=== PATIENT | female | born 1940 | race Caucasian/White ===

== ENCOUNTER 2016-12-26 16:31 | Inpatient (IN) | payer OTHER ==
[2016-12-26] MEDS ORDERED: LEVOFLOXACIN 750 MG IVPB 150 ML IVPB ONE ×2 (17:00→17:30)
[2016-12-26] MEDS ORDERED: CLINDAMYCIN IVPB ONE (17:01)
[2016-12-26] MEDS ORDERED: WATER IVPB ONE (17:01)
[2016-12-26] MEDS ORDERED: DEXTROSE 5% IVPB ONE (17:01)
[2016-12-26] MEDS ORDERED: morphine CARPU-JECT 2 MG/1 ML DISP.SYRIN IVPUSH ONE (17:16)
--- NOTE | 2016-12-26 17:22 | PDOC ---
History of Present Illness <Ivonne Farrell - Last Filed: 12/27/16 02:03> - General History Source: Patient Exam Limitations: No Limitations - History of Present Illness Initial Comments: 12/26/16 17:15 76-year-old female presents to the ED for follow-up wound check. Patient states was seen here yesterday after being bit by her neighbor's domesticated cat. Patient states received tetanus, IV antibiotics dressing care, and recommendations return to the ED. Patient denies fever chills but states increased swelling and discomfort to the site. Patient denies history of immunosuppression including diabetes. Patient states is able to move the digits but with difficulty secondary to pain. Timing/Duration: getting worse Severity: moderate Associated Symptoms: reports: denies symptoms <Jennifer Buckner - Last Filed: 12/29/16 08:07> - General Chief Complaint: Revisit,Wound Recheck Stated Complaint: REVISIT, WOUND CHECK Time Seen by Provider: 12/26/16 16:50 Past History <Ivonne Farrell - Last Filed: 12/27/16 02:03> - Travel Traveled outside of the country in the last 30 days: No Close contact w/someone who was outside of country & ill: No - Past Medical History Anemia: No Asthma: Yes (NO RECENT ATTACK) Cancer: No Cardiac Disorders: No (ALCOHOLIC CARDIOMYOPATHY) CVA: No COPD: Yes (Emphysema) CHF: No Dementia: No Diabetes: No GI Disorders: Yes (GERD, Colon polyps;DIVERTICULOSIS;GERD;H/H) Disorders: No HTN: Yes Hypercholesterolemia: Yes Liver Disease: No Seizures: No Thyroid Disease: Yes (Hypothyroidism) - Surgical History Abdominal Surgery: No Appendectomy: No Cardiac Surgery: No Cholecystectomy: No Lung Surgery: No Neurologic Surgery: Yes (LUMBAR LAMINECTOMY W/ STEROID INJECTIONS) Orthopedic Surgery: Yes (R knee arthroscopy, Torn rotated cuff X2) - Immunization History Immunization Up to Date: Yes - Psycho/Social/Smoking Cessation Hx Anxiety: No Suicidal Ideation: No Smoking Status: Yes Smoking History: Former smoker Have you smoked in the past 12 months: No Number of Cigarettes Smoked Daily: 0 If you are a former smoker, when did you quit?: 2000 Information on smoking cessation initiated: No Hx Alcohol Use: No Drug/Substance Use Hx: No Substance Use Type: Alcohol Hx Substance Use Treatment: No Patient Lives Alone: Yes Lives with/in: lives alone <Jennifer Buckner - Last Filed: 12/29/16 08:07> - Past Medical History Allergies/Adverse Reactions: Allergies Allergy/AdvReac Type Severity Reaction Status Date / Time Penicillins Allergy shock Verified 12/26/16 16:34 Home Medications: Ambulatory Orders Calcium Carbonate/Vitamin D3 [Calcium 600-Vit D3 200 Tablet] 1 each PO DAILY 07/07 Magnesium Oxide [Magnesium] 500 mg PO DAILY 02/05/12 Montelukast Na [Singulair -] 10 mg PO HS 02/05/12 Ibandronate Sodium [Boniva (Monthly)] 150 mg PO Q30D 12/14/13 Levothyroxine Sodium 0.88 mcg PO DAILY 12/14/13 Potassium 550 mg PO DAILY 04/18/15 Ranitidine [Zantac -] 150 mg PO BID 04/18/15 Amlodipine Besylate [Norvasc -] 2.5 mg PO DAILY tablet 03/08/16 Atorvastatin Ca [Lipitor] 20 mg PO HS tablet 03/08/16 Buspirone HCl [Buspar -] 10 mg PO BID tablet 03/08/16 Calcium 500Mg/Vit-D 200 Units [Os-Carlos 500+D -] 1 tab PO DAILY tab 03/08/16 Citalopram Hydrobromide [Celexa -] 40 mg PO DAILY tablet 03/08/16 Meclizine HCl [Antivert -] 12.5 mg PO TID PRN #30 tablet 03/08/16 Gabapentin [Neurontin -] 600 mg PO BID 05/04/16 Hydromorphone HCl [Dilaudid] 2 mg PO PRN PRN 05/04/16 Levalbuterol Tartrate [Xopenex Hfa] 15 gm IH PRN PRN 05/04/16 Ciprofloxacin [Cipro -] 500 mg PO Q12H #20 tablet 12/25/16 Clindamycin [Cleocin -] 300 mg PO Q6HPO #28 capsule 12/25/16 Hydrocodone/Ibuprofen [VICOPROFEN 7.5/200 mg [NF MEDICATION]] 1 tab PO Q6H #15 tablet MDD 4mg 12/25/16 Review of Systems - Review of Systems Able to Perform ROS?: Yes Constitutional: No: Symptoms Reported HEENTM: No: Symptoms Reported Respiratory: No: Symptoms reported Cardiac (ROS): No: Symptoms Reported ABD/GI: No: Symptoms Reported : No: Symptoms Reported Musculoskeletal: Yes: Muscle Pain Integumentary: Yes: Erythema, Other (edema) Neurological: No: Headache, Weakness, Dizziness Endocrine: No: Symptoms Reported Hematologic/Lymphatic: No: Symptoms Reported <SitaJennifer ornelas - Last Filed: 12/29/16 08:07> *Physical Exam - Vital Signs Last Vital Signs Temp Pulse Resp BP Pulse Ox 97.7 F 74 18 100/69 94 L 12/26/16 21:00 12/26/16 21:00 12/26/16 21:00 12/26/16 21:00 12/26/16 21:00 <Ivonne Farrell - Last Filed: 12/27/16 02:03> - Vital Signs Last Vital Signs Temp Pulse Resp BP Pulse Ox 98.2 F 81 18 102/64 96 12/26/16 16:34 12/26/16 16:34 12/26/16 16:34 12/26/16 16:34 12/26/16 16:34 - Physical Exam General Appearance: Yes: Nourished, Appropriately Dressed. No: Apparent Distress HEENT: positive: EOMI, TWIN. negative: Pale Conjunctivae Gastrointestinal/Abdominal: positive: Soft. negative: Tenderness Extremity: positive: Normal Capillary Refill, Normal Range of Motion. negative : Normal Inspection (notededema to the right first second and third digit extending to the dorsal aspect and base of right hand with noted opened weeping purulent drainage wound. No foul odor. No palpable Fluctuance or increased warmth) Integumentary: positive: Warm, Swelling Neurologic: positive: Motor Strength 5/5 (ambulatory) <SitaClaymont - Last Filed: 12/29/16 08:07> Heart Score/ECG Review #1 ECG reviewed & interpreted by me at: 02:03 12/27/16 02:03 Twelve-lead EKG was performed and reviewed by me. There is normal sinus rhythm with a normal rate of 68 bpm. The axis is normal. The intervals are normal - pr: 158ms, QRS:82ms, QTc:452ms. There are no ST elevations or depression. T wave inversions v2, v3, v4-v6 flattening <Ivonne Farrell - Last Filed: 12/27/16 02:03> ED Treatment Course - LABORATORY CBC & Chemistry Diagram: 12/26/16 17:36 12/26/16 17:36 - Medications Given in the ED: ED Medications Discontinued Medications Generic Name Dose Route Start Last Admin Trade Name Rosie PRN Reason Stop Dose Admin Clindamycin Phosphate 450 mg/ 51 mls @ 100 mls/hr 12/26/16 17:01 12/26/16 18:16 Dextrose IVPB 12/26/16 17:31 100 mls/hr ONCE ONE Administration Levofloxacin 150 mls @ 100 mls/hr 12/26/16 17:00 12/26/16 17:51 Levaquin 750 Mg Premixed Ivpb - IVPB 12/26/16 18:29 100 mls/hr ONCE ONE Administration Morphine Sulfate 2 mg 12/26/16 17:16 12/26/16 17:51 Morphine Injection - IVPUSH 12/26/16 17:17 2 mg ONCE ONE Administration <Ivonne Farrell - Last Filed: 12/27/16 02:03> - LABORATORY CBC & Chemistry Diagram: 12/29/16 06:20 12/27/16 06:00 <Jennifer Buckner - Last Filed: 12/29/16 08:07> Medical Decision Making - Medical Decision Making 12/26/16 17:19 Patient here for wound check after being bit by domesticated cat yesterday. Patient on exam had subjective complaints of increased pain and swelling. Patient on my exam hand is edematous, tender, and with weeping open wound. Patient will be admitted for localized cellulitis secondary to domesticated cat bite. I will also increase her dose of antibiotics, which were clindamycin and Levaquin. Wound culture and blood cultures also obtained. Case discussed with Dr. Colton Majano and accepted to [facility] inpatient. <Jennifer Buckner - Last Filed: 12/29/16 08:07> *DC/Admit/Observation/Transfer <Ivonne Farrell - Last Filed: 12/27/16 02:03> - Discharge Dispostion Admit: Yes <Jennifer Buckner - Last Filed: 12/29/16 08:07> Diagnosis at time of Disposition: Cellulitis of right hand Cat bite Qualifiers: Encounter type: initial encounter Qualified Code(s): W55.01XA - Bitten by cat, initial encounter
[2016-12-26] MEDS ORDERED: morphine CARPU-JECT 2 MG/1 ML DISP.SYRIN ONE (17:29)
[2016-12-26] MEDS ORDERED: PATIENT'S OWN MEDICATION (NON-FORMULARY) (Levalbuterol Tartrate [Xopenex Hfa] 15 GM) IH PRN (17:42)
[2016-12-26 17:48] LABS: BASOPHIL 0.6 % (0-2.0); EOSINOPHIL 1.3 % (0-4.5); MCHC 32.3 g/dl (32.0-36.0); MEAN CELL VOLUME 89.7 fl (80-96); NEUTROPHILS 69.3 % (42.8-82.8); PLATELET COUNT 190 K/MM3 (134-434); RDW 14.7 % (11.6-15.6); WHITE BLOOD COUNT 11.7 K/mm3 (4.0-10.0)
[2016-12-26 18:32] LABS: ALBUMIN 4.1 g/dl (3.4-5.0); ALK PHOS 67 U/L (45-117); ANION GAP 9 (8-16); CALCIUM 8.9 mg/dL (8.5-10.1); CO2 26 mmol/L (21-32); CREATININE 0.9 mg/dL (0.55-1.02); GLUCOSE,RANDOM 94 mg/dL (74-106); SGOT/AST 25 U/L (15-37); SGPT/ALT 34 U/L (12-78); TOT PROT 7.1 g/dl (6.4-8.2)
[2016-12-26] MEDS ORDERED: CLINDAMYCIN IVPB 300 MG in DEXTROSE 5%-WATER - 48 ML IVPB SCH (21:00)
[2016-12-26] MEDS: ATORVASTATIN CA 20 MG TABLET (FP) PO SCH (21:58)
[2016-12-26] MEDS: GABAPENTIN 300 MG CAPSULE (FP) PO SCH (21:58)
[2016-12-26] MEDS: MONTELUKAST NA 10 MG TABLET PO SCH (21:59)
[2016-12-26] MEDS: RANITIDINE HCL 150 MG TABLET (FP) PO SCH (21:59)
[2016-12-26] MEDS: busPIRone HCL 10 MG TABLET (FP) PO SCH (22:27)
[2016-12-26 22:37] VITALS: BMI 29.2
[2016-12-26] MEDS: morphine CARPU-JECT 2 MG/1 ML DISP.SYRIN IVPUSH PRN (22:57)
[2016-12-27] MEDS: CLINDAMYCIN 300 MG PREMIX IVPB 50 ML IVPB SCH ×3 (00:54→09:04)
--- NOTE | 2016-12-27 01:58 | PDOC ---
*Physical Exam - Vital Signs Last Vital Signs Temp Pulse Resp BP Pulse Ox 97.7 F 74 18 100/69 94 L 12/26/16 21:00 12/26/16 21:00 12/26/16 21:00 12/26/16 21:00 12/26/16 21:00 ED Treatment Course - LABORATORY CBC & Chemistry Diagram: 12/26/16 17:36 12/26/16 17:36 - Medications Given in the ED: ED Medications Discontinued Medications Generic Name Dose Route Start Last Admin Trade Name Rosie PRN Reason Stop Dose Admin Clindamycin Phosphate 450 mg/ 51 mls @ 100 mls/hr 12/26/16 17:01 12/26/16 18:16 Dextrose IVPB 12/26/16 17:31 100 mls/hr ONCE ONE Administration Levofloxacin 150 mls @ 100 mls/hr 12/26/16 17:00 12/26/16 17:51 Levaquin 750 Mg Premixed Ivpb - IVPB 12/26/16 18:29 100 mls/hr ONCE ONE Administration Morphine Sulfate 2 mg 12/26/16 17:16 12/26/16 17:51 Morphine Injection - IVPUSH 12/26/16 17:17 2 mg ONCE ONE Administration Medical Decision Making - Medical Decision Making 12/27/16 01:57 This patient returned to the ER a she promised she would Hand swollen, weeping Will admit Will give IV abx Pt agreeable to this Pt seen by Midlevel Provider under my direct supervision Pt interviewed and examined Ancillary studies reviewed I agree with plan as outlined by Midlevel Provider *DC/Admit/Observation/Transfer Diagnosis at time of Disposition: Cellulitis of right hand Cat bite Qualifiers: Encounter type: initial encounter Qualified Code(s): W55.01XA - Bitten by cat, initial encounter
[2016-12-27] MEDS: morphine CARPU-JECT 2 MG/1 ML DISP.SYRIN IVPUSH PRN (06:23)
[2016-12-27 07:52] LABS: MCH 29.9 pg (25.7-33.7); MCHC 33.7 g/dl (32.0-36.0); MEAN CELL VOLUME 88.7 fl (80-96); MEAN PLT VOLUME 7.7 fl (7.5-11.1); PLATELET COUNT 170 K/MM3 (134-434); RDW 14.2 % (11.6-15.6); WHITE BLOOD COUNT 8.4 K/mm3 (4.0-10.0)
[2016-12-27 08:46] LABS: ALBUMIN 3.4 g/dl (3.4-5.0); ALK PHOS 59 U/L (45-117); ANION GAP 9 (8-16); BILIRUBIN,TOTAL 0.9 mg/dL (0.2-1.0); CALCIUM 8.3 mg/dL (8.5-10.1); CO2 26 mmol/L (21-32); CREATININE 0.7 mg/dL (0.55-1.02); GLUCOSE,RANDOM 87 mg/dL (74-106); SGOT/AST 20 U/L (15-37); SGPT/ALT 27 U/L (12-78)
[2016-12-27] MEDS: LEVOTHYROXINE NA 88 MCG TABLET (FP) PO SCH (09:04)
[2016-12-27] MEDS: RANITIDINE HCL 150 MG TABLET (FP) PO SCH ×2 (09:04→22:38)
[2016-12-27] MEDS: amLODIPine BESYLATE 5 MG TABLET (FP) PO SCH (09:04)
[2016-12-27] MEDS: GABAPENTIN 300 MG CAPSULE (FP) PO SCH ×2 (09:04→22:38)
[2016-12-27] MEDS: busPIRone HCL 10 MG TABLET (FP) PO SCH ×2 (09:07→22:38)
[2016-12-27] MEDS: CITALOPRAM HYDROBROMIDE 20 MG TABLET (FP) PO SCH (09:09)
--- NOTE | 2016-12-27 11:11 | PN ---
Progress Note (short form) - Note Progress Note: ID consult imp/reccd 76 year old s/p cat bite by neighbors cat (UTD on vaccines), seen in ED 12/25- advised admission- she declined and went home on po cipro and po clindamycin patient with penicillin allergy (hives, swelling, sob) hand got more red and painful and she came back to ed for evaluation infected cat bite pen allergy would suggest hand surgery evaluation continue levaqun and clindamycin f/u cultures Problem List - Problems (1) Infected cat bite Code(s): W55.01XA - BITTEN BY CAT, INITIAL ENCOUNTER (2) Penicillin allergy Code(s): Z88.0 - ALLERGY STATUS TO PENICILLIN
--- NOTE | 2016-12-27 11:33 | HP ---
Admitting History and Physical - Primary Care Physician PCP: Colton Majano - Admission Chief Complaint: s/p R hand cat bite History of Present Illness: 12/26/16 17:15 76-year-old female h/o HTN, HLP, OA/DJD, anxiety/depression, hypothyroidism, presents to the ED for after being bit on the right hand by her neighbor's domesticated cat. Patient was bit and came in ER on 12/25 but then she left AMA to arrange the care for her own 3 cats that she has at home. On 12.26 she developed worsening R hand pain and swelling and came back to ER; she received tetanus, IV antibiotics dressing care, and wasadmitted as INPT. Patient denies fever chills but states increased swelling and discomfort to the site. Patient states is able to move the digits but with difficulty secondary to pain. History Source: Patient, Medical Record Limitations to Obtaining History: No Limitations - Past Medical History Cardiovascular: Yes: HTN Pulmonary: Yes: COPD ...: No Musculoskeletal: Yes: Chronic low back pain, Osteoarthritis - Advance Directives Advance Directives: Yes: Health Care Proxy - Smoking History Smoking history: Former smoker Have you smoked in the past 12 months: No Aproximately how many cigarettes per day: 0 If you are a former smoker, when did you quit?: 2000 - Alcohol/Substance Use Hx Alcohol Use: No History of Substance Use: reports: None - Social History Usual Living Arrangement: Yes: Alone ADL: Independent History of Recent Travel: No Home Medications - Allergies Allergies/Adverse Reactions: Allergies Allergy/AdvReac Type Severity Reaction Status Date / Time Penicillins Allergy shock Verified 12/26/16 16:34 - Home Medications Home Medications: Ambulatory Orders Calcium Carbonate/Vitamin D3 [Calcium 600-Vit D3 200 Tablet] 1 each PO DAILY 07/07 Magnesium Oxide [Magnesium] 500 mg PO DAILY 02/05/12 Montelukast Na [Singulair -] 10 mg PO HS 02/05/12 Ibandronate Sodium [Boniva (Monthly)] 150 mg PO Q30D 12/14/13 Levothyroxine Sodium 0.88 mcg PO DAILY 12/14/13 Potassium 550 mg PO DAILY 04/18/15 Ranitidine [Zantac -] 150 mg PO BID 04/18/15 Amlodipine Besylate [Norvasc -] 2.5 mg PO DAILY tablet 03/08/16 Atorvastatin Ca [Lipitor] 20 mg PO HS tablet 03/08/16 Buspirone HCl [Buspar -] 10 mg PO BID tablet 03/08/16 Calcium 500Mg/Vit-D 200 Units [Os-Carlos 500+D -] 1 tab PO DAILY tab 03/08/16 Citalopram Hydrobromide [Celexa -] 40 mg PO DAILY tablet 03/08/16 Meclizine HCl [Antivert -] 12.5 mg PO TID PRN #30 tablet 03/08/16 Gabapentin [Neurontin -] 600 mg PO BID 05/04/16 Hydromorphone HCl [Dilaudid] 2 mg PO PRN PRN 05/04/16 Levalbuterol Tartrate [Xopenex Hfa] 15 gm IH PRN PRN 05/04/16 Ciprofloxacin [Cipro -] 500 mg PO Q12H #20 tablet 12/25/16 Clindamycin [Cleocin -] 300 mg PO Q6HPO #28 capsule 12/25/16 Hydrocodone/Ibuprofen [VICOPROFEN 7.5/200 mg [NF MEDICATION]] 1 tab PO Q6H #15 tablet MDD 4mg 12/25/16 Family Disease History - Family Disease History Family History: Unremarkable Review of Systems - Review of Systems Constitutional: denies: Chills, Fever, Lethargy Eyes: denies: Blind Spots, Blurred Vision, Double Vision HENT: denies: Epistaxis Neck: denies: Pain on Movement, Stiffness Cardiovascular: denies: Palpitations, Shortness of Breath Respiratory: denies: Cough, SOB Gastrointestinal: denies: Abdominal Pain, Constipation, Diarrhea, Vomiting Genitourinary: denies: Dysuria, Flank Pain Musculoskeletal: reports: Other (R hand pain, rash and swelling after cat bite) . denies: Back Pain Integumentary: reports: Wound (R hand). denies: Eczema Neurological: denies: Change in LOC, Change in Speech, Confusion, Dizziness, Headache, Seizure, Syncope, Unsteady Gait, Weakness Endocrine: denies: Excessive Sweating, Flushing Hematology/Lymphatic: denies: Easily Bruised, Excessive Bleeding Psychiatric: denies: Altered Sleep Pattern, Anxiety, Depression, Suicidal Physical Examination Vital Signs: Vital Signs Temperature 98.8 F 12/27/16 10:00 Pulse Rate 87 12/27/16 10:00 Respiratory Rate 18 12/27/16 10:00 Blood Pressure 116/75 12/27/16 10:00 O2 Sat by Pulse Oximetry (%) 95 12/27/16 09:00 Constitutional: Yes: No Distress, Calm Eyes: Yes: Conjunctiva Clear HENT: Yes: Atraumatic Neck: Yes: Supple Cardiovascular: Yes: Regular Rate and Rhythm Respiratory: Yes: CTA Bilaterally Gastrointestinal: Yes: Soft. No: Distention, Tenderness Renal/: No: CVA Tenderness - Left, CVA Tenderness - Right Musculoskeletal: No: Joint Stiffness, Joint Swelling Extremities: Yes: Other (R hand wounds around distal radial area s/p multiple bites, dorsal hand swelling and rash; pain with minimal movements.). No: Cold, Cool, Cyanosis Edema: No Integumentary: Yes: Rash (see above). No: Pressure Ulcer, Venous Stasis Changes Neurological: Yes: WNL, Alert, Oriented ...Motor Strength: WNL Psychiatric: Yes: WNL, Alert, Oriented. No: Agitated, Suicidal Ideation Labs: CBC, BMP 12/27/16 06:00 12/27/16 06:00 Imaging - Results Chest X-ray: Report Reviewed Other: Report Reviewed Assessment/Plan 12/26/16 17:15 76-year-old female h/o HTN, HLP, OA/DJD, anxiety/depression, hypothyroidism, presents to the ED for after being bit on the right hand by her neighbor's domesticated cat. R hand cellulitis admit to inpt; IV antibiotics per ID -d/w dr Edwards wound care per hand sx - d/w dr Sonido [place], DVT pfx d/w pt and staff
[2016-12-27] MEDS: LEVOFLOXACIN 500 MG IVPB 100 ML IVPB SCH (13:53)
[2016-12-27] MEDS: LACTOBACILLUS ACIDOPHILUS 1 EACH TAB (FP) PO SCH (13:53)
--- NOTE | 2016-12-27 14:08 | CONS ---
DATE OF CONSULTATION: DATE OF DICTATION: 12/27/2016 REQUESTED BY: Colton Majano MD This is a 76-year-old woman. She is . She lives alone. She presented to the emergency room on the when she sustained a bite to her hand from her neighbor's cat. Apparently the cat was on her terrace--they share a terrace, and she thought it was her cat, and then she threw a blanket on it, and the cat became combative and it bit her. The patient came to the emergency room. She was found to have multiple puncture wounds to her right wrist, a deeper one near the radial aspect of the wrist. They irrigated the wound and Betadine soaked it. She was given clindamycin and Levaquin. It was recommended to her that she stay but she declined admission. She received, as well, a TDaP vaccination and she insistent on going home to take care of her 3 cats. After going home, she noted the next day that her arm was more swollen and painful, and she returned to the emergency room. She had cultures drawn and she was admitted. She is allergic to PENICILLIN. Apparently over 10 years ago she took a course of PENICILLIN and developed hives and facial swelling along with shortness of breath. She came to the emergency room and required overnight admission. Her medications as an outpatient include Zantac, Singulair, Antivert, levothyroxine, Celexa, atorvastatin, and Norvasc, as well as calcium with vitamin D. She was given prescriptions for Cipro and clindamycin at the time of discharge. Her past medical history is notable for a history of asthma, COPD, GERD, hypercholesterolemia, hypothyroidism. She has had a lumbar laminectomy in the past and right knee arthroscopy. She has had a rotator cuff tear x2. SOCIAL HISTORY: She is . She lives alone. She is a former smoker, she stopped in 2000. REVIEW OF SYSTEMS: She denies fevers, chills, rigors. She notes that she has pain and swelling of the hand. PHYSICAL EXAMINATION: General: She is awake and alert. Vital Signs: Temperature is 98.8. Pulse of 87. Blood pressure 116/75. Respiratory rate 18. HEENT: She is normocephalic. Her eyes are anicteric. Neck: Supple. Lungs: Clear to auscultation. Heart: Regular rate and rhythm. Abdomen: Soft, nontender. Extremities: The right hand is swollen. She is able to move all her fingers. She has sensation intact. She has severe pain extending up into the forearm. There are multiple puncture wounds, the largest of which is at her wrist. She had an x-ray of her hand done when first presented to the emergency room, where there was no evidence of fracture or dislocation. In summary, this is a 76-year-old woman with infected cat bite and PENICILLIN allergy. Would suggest hand surgery evaluation. Continue Levaquin and clindamycin and follow cultures. Further recommendations to follow, based on clinical course. Rogelio [id number]
[2016-12-27] MEDS: CLINDAMYCIN 600MG PREMIX IVPB 50 ML IVPB SCH (17:20)
[2016-12-27] MEDS: MONTELUKAST NA 10 MG TABLET PO SCH (22:38)
[2016-12-27] MEDS: ATORVASTATIN CA 20 MG TABLET (FP) PO SCH (22:38)
[2016-12-28] MEDS: CLINDAMYCIN 600MG PREMIX IVPB 50 ML IVPB SCH ×3 (01:32→17:49)
--- NOTE | 2016-12-28 09:08 | CON.ORTH ---
Consult Reason for Consultation:: right wrist/forearm cat bite - Past Medical History Cardio/Vascular: Yes: HTN Pulmonary: Yes: COPD ...: No Musculoskeletal: Yes: Chronic low back pain, Osteoarthritis - Alcohol/Substance Use Hx Alcohol Use: No History of Substance Use: reports: None - Smoking History Smoking history: Former smoker Have you smoked in the past 12 months: No Aproximately how many cigarettes per day: 0 If you are a former smoker, when did you quit?: 2000 - Social History ADL: Independent History of Recent Travel: No Home Medications - Allergies Allergies/Adverse Reactions: Allergies Allergy/AdvReac Type Severity Reaction Status Date / Time Penicillins Allergy shock Verified 12/26/16 16:34 - Home Medications Home Medications: Ambulatory Orders Calcium Carbonate/Vitamin D3 [Calcium 600-Vit D3 200 Tablet] 1 each PO DAILY 07/07 Magnesium Oxide [Magnesium] 500 mg PO DAILY 02/05/12 Montelukast Na [Singulair -] 10 mg PO HS 02/05/12 Ibandronate Sodium [Boniva (Monthly)] 150 mg PO Q30D 12/14/13 Levothyroxine Sodium 0.88 mcg PO DAILY 12/14/13 Potassium 550 mg PO DAILY 04/18/15 Ranitidine [Zantac -] 150 mg PO BID 04/18/15 Amlodipine Besylate [Norvasc -] 2.5 mg PO DAILY tablet 03/08/16 Atorvastatin Ca [Lipitor] 20 mg PO HS tablet 03/08/16 Buspirone HCl [Buspar -] 10 mg PO BID tablet 03/08/16 Calcium 500Mg/Vit-D 200 Units [Os-Carlos 500+D -] 1 tab PO DAILY tab 03/08/16 Citalopram Hydrobromide [Celexa -] 40 mg PO DAILY tablet 03/08/16 Meclizine HCl [Antivert -] 12.5 mg PO TID PRN #30 tablet 03/08/16 Gabapentin [Neurontin -] 600 mg PO BID 05/04/16 Hydromorphone HCl [Dilaudid] 2 mg PO PRN PRN 05/04/16 Levalbuterol Tartrate [Xopenex Hfa] 15 gm IH PRN PRN 05/04/16 Ciprofloxacin [Cipro -] 500 mg PO Q12H #20 tablet 12/25/16 Clindamycin [Cleocin -] 300 mg PO Q6HPO #28 capsule 12/25/16 Hydrocodone/Ibuprofen [VICOPROFEN 7.5/200 mg [NF MEDICATION]] 1 tab PO Q6H #15 tablet MDD 4mg 12/25/16 Physical Exam for Ortho Vital Signs: Vital Signs Temperature 97.5 F L 12/28/16 06:52 Pulse Rate 74 12/28/16 06:52 Respiratory Rate 18 12/28/16 06:52 Blood Pressure 129/80 12/28/16 06:52 O2 Sat by Pulse Oximetry (%) 95 12/27/16 21:00 Labs: CBC, BMP 12/27/16 06:00 12/27/16 06:00 - Upper Extremity Wrist: Yes: Right, Abrasion, Erythema, Laceration, Limited ROM, Pain, Swelling, Tenderness, Other (multiple puncture sites- no fluctuance or drainage, nvi) Imaging - Results X-ray: Report Reviewed, Image Reviewed Assessment/Plan 76-year-old female presented to the ED for follow-up wound check. Patient states was seen here yesterday after being bit by her neighbor's domesticated cat. Patient states received tetanus, IV antibiotics dressing care, and recommendations return to the ED. Patient denies fever chills but states increased swelling and discomfort to the site. Patient denies history of immunosuppression including diabetes. Patient states is able to move the digits but with difficulty secondary to pain. Pt states arm/wrist is much improved with IV abx a/p- Right wrist/forearm cellulitis No surgical intervention at the present time ABx as per ID f/u cultures warm soaks (betadine) daily elevation ROM exercises will follow d/w DR. Head
[2016-12-28] MEDS: LEVOFLOXACIN 500 MG IVPB 100 ML IVPB SCH (09:28)
[2016-12-28] MEDS: RANITIDINE HCL 150 MG TABLET (FP) PO SCH ×2 (09:28→21:35)
[2016-12-28] MEDS: amLODIPine BESYLATE 5 MG TABLET (FP) PO SCH (09:28)
[2016-12-28] MEDS: CITALOPRAM HYDROBROMIDE 20 MG TABLET (FP) PO SCH (09:28)
[2016-12-28] MEDS: LEVOTHYROXINE NA 88 MCG TABLET (FP) PO SCH (09:28)
[2016-12-28] MEDS: LACTOBACILLUS ACIDOPHILUS 1 EACH TAB (FP) PO SCH (09:28)
[2016-12-28] MEDS: busPIRone HCL 10 MG TABLET (FP) PO SCH ×2 (09:31→21:33)
[2016-12-28] MEDS: GABAPENTIN 300 MG CAPSULE (FP) PO SCH ×2 (09:31→21:34)
[2016-12-28] MEDS ORDERED: PT OWN MED DRAWER 7, Y5N ONE ×4 (09:31→20:32)
--- NOTE | 2016-12-28 11:57 | PN ---
Progress Note (short form) - Note Progress Note: much improved less arm pain able to move her fingers better today less swelling Vital Signs Period Temp Pulse Resp BP Sys/Black Pulse Ox Last 24 Hr 97.4 F-98.8 F 74-93 18-18 109-131/70-80 95 cor-rrr lungs clear abd soft,nt ext dressing intact,-just changed by ortho, less tender forearm. less swollen fingers with increased ROM CBC, BMP 12/27/16 06:00 12/27/16 06:00 Microbiology 12/26/16 17:38 Blood - Peripheral Venous Blood Culture - Preliminary NO GROWTH OBTAINED AFTER 24 HOURS, INCUBATION TO CONTINUE FOR 4 DAYS. 12/26/16 17:38 Blood - Peripheral Venous Blood Culture - Preliminary NO GROWTH OBTAINED AFTER 24 HOURS, INCUBATION TO CONTINUE FOR 4 DAYS. 12/26/16 15:38 Wrist - Right Gram Stain - Final a/p infected cat bite pen allergy improved, soaks per surgery continue levaqun and clindamycin day #2 f/u cultures Problem List - Problems (1) Infected cat bite Code(s): W55.01XA - BITTEN BY CAT, INITIAL ENCOUNTER (2) Penicillin allergy Code(s): Z88.0 - ALLERGY STATUS TO PENICILLIN
[2016-12-28] MEDS: MONTELUKAST NA 10 MG TABLET PO SCH (21:34)
[2016-12-28] MEDS: ATORVASTATIN CA 20 MG TABLET (FP) PO SCH (21:34)
[2016-12-28] MEDS: morphine CARPU-JECT 2 MG/1 ML DISP.SYRIN IVPUSH PRN (22:25)
--- NOTE | 2016-12-29 00:09 | PN ---
Progress Note, Physician History of Present Illness: Pt w/o fever, chills; pt. states that her hand is less swollen. Pt. w/o SOB, CP, ABd pain, diarrhea. Pt was seen on 07/04 evening, at bedside pt.s nurse present. - Current Medication List Current Medications: Active Medications Amlodipine Besylate (Norvasc -) 2.5 mg PO DAILY [facility] Last Admin: 12/28/16 09:28 Dose: 2.5 mg Atorvastatin Calcium (Lipitor -) 20 mg PO HS [facility] Last Admin: 12/28/16 21:34 Dose: 20 mg Buspirone HCl (Buspar -) 10 mg PO BID [facility] Last Admin: 12/28/16 21:33 Dose: 10 mg Citalopram Hydrobromide (Celexa -) 20 mg PO DAILY [facility] Last Admin: 12/28/16 09:28 Dose: 20 mg Gabapentin (Neurontin -) 600 mg PO BID [facility] Last Admin: 12/28/16 21:34 Dose: 600 mg Levofloxacin (Levaquin 500 Mg Premixed Ivpb -) 100 mls @ 100 mls/hr IVPB DAILY [facility] Last Admin: 12/28/16 09:28 Dose: 100 mls/hr Clindamycin Phosphate (Cleocin 600 Mg Premix Ivpb -) 50 mls @ 100 mls/hr IVPB Q8H-IV [facility] Last Admin: 12/28/16 17:49 Dose: 100 mls/hr Lactobacillus Acidophilus (Bacid -) 1 tab PO DAILY [facility] Last Admin: 12/28/16 09:28 Dose: 1 tab Levothyroxine Sodium (Synthroid -) 88 mcg PO DAILY [facility] Last Admin: 12/28/16 09:28 Dose: 88 mcg Montelukast Sodium (Singulair -) 10 mg PO [facility] Last Admin: 12/28/16 21:34 Dose: 10 mg Morphine Sulfate (Morphine Injection -) 2 mg IVPUSH Q4H PRN PRN Reason: PAIN Last Admin: 12/28/16 22:25 Dose: 2 mg Non-Formulary Medication (Levalbuterol Tartrate [Xopenex Hfa]) 15 gm IH PRN PRN PRN Reason: SHORTNESS OF BREATH Ranitidine HCl (Zantac -) 150 mg PO BID [facility] Last Admin: 12/28/16 21:35 Dose: 150 mg - Objective Vital Signs: Vital Signs Temperature 98.3 F 12/28/16 18:00 Pulse Rate 83 12/28/16 18:00 Respiratory Rate 18 12/28/16 18:00 Blood Pressure 131/77 12/28/16 18:00 O2 Sat by Pulse Oximetry (%) 95 12/28/16 09:00 Constitutional: Yes: No Distress, Calm Cardiovascular: Yes: Regular Rate and Rhythm, S1, S2 Respiratory: Yes: Regular, CTA Bilaterally. No: Rales Gastrointestinal: Yes: Normal Bowel Sounds, Soft. No: Palpable Mass, Tenderness Edema: No Wound/Incision: Yes: Dressing Dry and Intact Neurological: Yes: Alert, Oriented Labs: CBC, BMP 12/27/16 06:00 12/27/16 06:00 Problem List - Problems (1) Cat bite Code(s): W55.01XA - BITTEN BY CAT, INITIAL ENCOUNTER Qualifiers: Encounter type: initial encounter Qualified Code(s): W55.01XA - Bitten by cat, initial encounter (2) Cellulitis of right hand Code(s): L03.113 - CELLULITIS OF RIGHT UPPER LIMB (3) Hypertension Code(s): I10 - ESSENTIAL (PRIMARY) HYPERTENSION (4) COPD (chronic obstructive pulmonary disease) Code(s): J44.9 - CHRONIC OBSTRUCTIVE PULMONARY DISEASE, UNSPECIFIED (5) Back pain Code(s): M54.9 - DORSALGIA, UNSPECIFIED Assessment/Plan ID consult and f/u appreciated Ortho consult appreciated. IV abtx. Local arm care AM labs
[2016-12-29] MEDS: CLINDAMYCIN 600MG PREMIX IVPB 50 ML IVPB SCH ×3 (01:37→17:23)
[2016-12-29 07:42] LABS: MCH 30.1 pg (25.7-33.7); MCHC 34.1 g/dl (32.0-36.0); MEAN CELL VOLUME 88.1 fl (80-96); MEAN PLT VOLUME 7.7 fl (7.5-11.1); PLATELET COUNT 214 K/MM3 (134-434); RDW 13.9 % (11.6-15.6); WHITE BLOOD COUNT 7.1 K/mm3 (4.0-10.0)
[2016-12-29 08:10] LABS: COCKROFT - GAULT 83.402; CREATININE 0.7 mg/dL (0.55-1.02)
[2016-12-29] MEDS ORDERED: PT OWN MED DRAWER 7, Y5N ONE ×2 (08:57→20:22)
[2016-12-29] MEDS: morphine CARPU-JECT 2 MG/1 ML DISP.SYRIN IVPUSH PRN ×2 (09:00→19:19)
[2016-12-29] MEDS: LEVOFLOXACIN 500 MG IVPB 100 ML IVPB SCH (09:04)
[2016-12-29] MEDS: RANITIDINE HCL 150 MG TABLET (FP) PO SCH ×2 (09:05→21:50)
[2016-12-29] MEDS: LACTOBACILLUS ACIDOPHILUS 1 EACH TAB (FP) PO SCH (09:05)
[2016-12-29] MEDS: busPIRone HCL 10 MG TABLET (FP) PO SCH ×2 (09:05→21:48)
[2016-12-29] MEDS: LEVOTHYROXINE NA 88 MCG TABLET (FP) PO SCH (09:05)
[2016-12-29] MEDS: GABAPENTIN 300 MG CAPSULE (FP) PO SCH ×2 (09:05→21:49)
[2016-12-29] MEDS: CITALOPRAM HYDROBROMIDE 20 MG TABLET (FP) PO SCH (09:05)
[2016-12-29] MEDS: amLODIPine BESYLATE 5 MG TABLET (FP) PO SCH (09:05)
--- NOTE | 2016-12-29 10:45 | PN ---
Progress Note, Physician History of Present Illness: Pt w/o fever, chills; pt. states that her hand feels less swollen, can flex her fingers. Pt. w/o SOB, CP, ABd pain, diarrhea. - Current Medication List Current Medications: Active Medications Amlodipine Besylate (Norvasc -) 2.5 mg PO DAILY [facility] Last Admin: 12/29/16 09:05 Dose: 2.5 mg Atorvastatin Calcium (Lipitor -) 20 mg PO [facility] Last Admin: 12/28/16 21:34 Dose: 20 mg Buspirone HCl (Buspar -) 10 mg PO BID [facility] Last Admin: 12/29/16 09:05 Dose: 10 mg Citalopram Hydrobromide (Celexa -) 20 mg PO DAILY [facility] Last Admin: 12/29/16 09:05 Dose: 20 mg Gabapentin (Neurontin -) 600 mg PO BID [facility] Last Admin: 12/29/16 09:05 Dose: 600 mg Levofloxacin (Levaquin 500 Mg Premixed Ivpb -) 100 mls @ 100 mls/hr IVPB DAILY [facility] Last Admin: 12/29/16 09:04 Dose: 100 mls/hr Clindamycin Phosphate (Cleocin 600 Mg Premix Ivpb -) 50 mls @ 100 mls/hr IVPB Q8H-IV [facility] Last Admin: 12/29/16 09:04 Dose: 100 mls/hr Lactobacillus Acidophilus (Bacid -) 1 tab PO DAILY [facility] Last Admin: 12/29/16 09:05 Dose: 1 tab Levothyroxine Sodium (Synthroid -) 88 mcg PO DAILY [facility] Last Admin: 12/29/16 09:05 Dose: 88 mcg Montelukast Sodium (Singulair -) 10 mg PO [facility] Last Admin: 12/28/16 21:34 Dose: 10 mg Morphine Sulfate (Morphine Injection -) 2 mg IVPUSH Q4H PRN PRN Reason: PAIN Last Admin: 12/29/16 09:00 Dose: 2 mg Non-Formulary Medication (Levalbuterol Tartrate [Xopenex Hfa]) 15 gm IH PRN PRN PRN Reason: SHORTNESS OF BREATH Ranitidine HCl (Zantac -) 150 mg PO BID [facility] Last Admin: 12/29/16 09:05 Dose: 150 mg - Objective Vital Signs: Vital Signs Temperature 97.8 F 12/29/16 06:26 Pulse Rate 70 12/29/16 06:26 Respiratory Rate 18 12/29/16 06:26 Blood Pressure 120/80 12/29/16 06:26 O2 Sat by Pulse Oximetry (%) 96 12/28/16 21:00 Constitutional: Yes: No Distress, Calm Cardiovascular: Yes: Regular Rate and Rhythm, S1, S2 Respiratory: Yes: Regular, CTA Bilaterally. No: Rales Gastrointestinal: Yes: Normal Bowel Sounds, Soft. No: Palpable Mass, Tenderness Extremities: Yes: Other (Right hand w/o erythema, crepitus, calor; pt with pain wiht palpation.) Edema: No Neurological: Yes: Alert, Oriented Labs: CBC, BMP 12/29/16 06:20 12/29/16 06:20 Problem List - Problems (1) Cat bite Code(s): W55.01XA - BITTEN BY CAT, INITIAL ENCOUNTER Qualifiers: Encounter type: initial encounter Qualified Code(s): W55.01XA - Bitten by cat, initial encounter (2) Cellulitis of right hand Code(s): L03.113 - CELLULITIS OF RIGHT UPPER LIMB (3) Hypertension Code(s): I10 - ESSENTIAL (PRIMARY) HYPERTENSION (4) COPD (chronic obstructive pulmonary disease) Code(s): J44.9 - CHRONIC OBSTRUCTIVE PULMONARY DISEASE, UNSPECIFIED (5) Back pain Code(s): M54.9 - DORSALGIA, UNSPECIFIED Assessment/Plan ID consult and f/u appreciated Ortho consult appreciated. Hand is improving. IV abtx. Local arm care AM labs
--- NOTE | 2016-12-29 10:55 | EKG ---
Test Reason : Blood Pressure : / mmHG Vent. Rate : 068 BPM Atrial Rate : 068 BPM P-R Int : 158 ms QRS Dur : 082 ms QT Int : 426 ms P-R-T Axes : 002 -12 -02 degrees QTc Int : 452 ms NORMAL SINUS RHYTHM INCOMPLETE RIGHT BUNDLE BRANCH BLOCK NONSPECIFIC T WAVE ABNORMALITY ABNORMAL ECG WHEN COMPARED WITH ECG OF 25-DEC-2016 17:28, NO SIGNIFICANT CHANGE WAS FOUND Confirmed by LOVELY LOPEZ MD ([id number]) on 12/29/2016 10:54:54 AM Referred By: Confirmed By:LOVELY LOPEZ MD
--- NOTE | 2016-12-29 14:23 | PN ---
Progress Note (short form) - Note Progress Note: much improved Vital Signs Period Temp Pulse Resp BP Sys/Black Pulse Ox Last 24 Hr 97.8 F-98.3 F 65-83 18-18 103-145/66-80 96 dressing removed open wound at right wrist, edema and erythema much improved CBC, BMP 12/29/16 06:20 12/29/16 06:20 Microbiology 12/26/16 15:38 Wrist - Right Gram Stain - Final 12/26/16 15:38 Wrist - Right Wound Culture - Preliminary 12/26/16 17:38 Blood - Peripheral Venous Blood Culture - Preliminary NO GROWTH OBTAINED AFTER 48 HOURS, INCUBATION TO CONTINUE FOR 3 DAYS. 12/26/16 17:38 Blood - Peripheral Venous Blood Culture - Preliminary NO GROWTH OBTAINED AFTER 48 HOURS, INCUBATION TO CONTINUE FOR 3 DAYS. a/p infected cat bite pen allergy improved, soaks per surgery continue levaqun and clindamycin day #3 f/u cultures- still pending! esr/crp in am Problem List - Problems (1) Infected cat bite Code(s): W55.01XA - BITTEN BY CAT, INITIAL ENCOUNTER (2) Penicillin allergy Code(s): Z88.0 - ALLERGY STATUS TO PENICILLIN
[2016-12-29] MEDS: HEPARIN NA (PORCINE) 5,000 UNITS/ML 1ML VIAL SQ SCH ×2 (21:48→21:53)
[2016-12-29] MEDS: ATORVASTATIN CA 20 MG TABLET (FP) PO SCH (21:49)
[2016-12-29] MEDS: MONTELUKAST NA 10 MG TABLET PO SCH (21:50)
[2016-12-30] MEDS: CLINDAMYCIN 600MG PREMIX IVPB 50 ML IVPB SCH ×2 (02:59→09:51)
[2016-12-30 07:49] LABS: MCHC 33.8 g/dl (32.0-36.0); MEAN CELL VOLUME 88.7 fl (80-96); MEAN PLT VOLUME 7.2 fl (7.5-11.1); PLATELET COUNT 238 K/MM3 (134-434); RDW 14.1 % (11.6-15.6); WHITE BLOOD COUNT 6.3 K/mm3 (4.0-10.0)
[2016-12-30 08:22] LABS: ALBUMIN 3.4 g/dl (3.4-5.0); ANION GAP 10 (8-16); BILIRUBIN,TOTAL 0.4 mg/dL (0.2-1.0); C-REACTIVE PROTEIN 2.2 MG/DL (0.00-0.3); CALCIUM 8.9 mg/dL (8.5-10.1); CO2 25 mmol/L (21-32); GLUCOSE,RANDOM 97 mg/dL (74-106); SGOT/AST 16 U/L (15-37); SGPT/ALT 29 U/L (12-78); TOT PROT 6.5 g/dl (6.4-8.2)
[2016-12-30 08:23] LABS: ALK PHOS 67 U/L (45-117); CREATININE 0.7 mg/dL (0.55-1.02)
--- NOTE | 2016-12-30 09:31 | PN ---
Progress Note (short form) - Note Progress Note: much improved much less pain and swelling Vital Signs Period Temp Pulse Resp BP Sys/Black Pulse Ox Last 24 Hr 97.8 F-98.8 F 64-80 17-20 100-111/54-73 97 cor-rrr lungs clear abd soft,nt ext left forearm no edema, FROM of fingers, wounds improved, minimal erythema CBC, BMP 12/30/16 06:35 12/30/16 06:35 Microbiology Laboratory Tests 12/30/16 06:35 C-Reactive Protein 2.2 H 12/26/16 17:38 Blood - Peripheral Venous Blood Culture - Preliminary NO GROWTH OBTAINED AFTER 72 HOURS, INCUBATION TO CONTINUE FOR 2 DAYS. 12/26/16 17:38 Blood - Peripheral Venous Blood Culture - Preliminary NO GROWTH OBTAINED AFTER 72 HOURS, INCUBATION TO CONTINUE FOR 2 DAYS. 12/26/16 15:38 Wrist - Right Gram Stain - Final 12/26/16 15:38 Wrist - Right Wound Culture - Final NO GROWTH AFTER 48 HOURS INCUBATION a/p infected cat bite pen allergy improved, can switch to po antibiotics soaks per surgery continue levaqun and clindamycin day #4 complete 14 days- total- clindamycin and cipro (I think she may have meds at home) would give a month of Bacid as well should have vns services Problem List - Problems (1) Infected cat bite Code(s): W55.01XA - BITTEN BY CAT, INITIAL ENCOUNTER (2) Penicillin allergy Code(s): Z88.0 - ALLERGY STATUS TO PENICILLIN
[2016-12-30] MEDS: busPIRone HCL 10 MG TABLET (FP) PO SCH (09:51)
[2016-12-30] MEDS: amLODIPine BESYLATE 5 MG TABLET (FP) PO SCH (09:51)
[2016-12-30] MEDS: RANITIDINE HCL 150 MG TABLET (FP) PO SCH (09:52)
[2016-12-30] MEDS: LACTOBACILLUS ACIDOPHILUS 1 EACH TAB (FP) PO SCH (09:52)
[2016-12-30] MEDS: GABAPENTIN 300 MG CAPSULE (FP) PO SCH (09:52)
[2016-12-30] MEDS: LEVOTHYROXINE NA 88 MCG TABLET (FP) PO SCH (09:52)
[2016-12-30] MEDS: HEPARIN NA (PORCINE) 5,000 UNITS/ML 1ML VIAL SQ SCH (09:52)
[2016-12-30] MEDS: CITALOPRAM HYDROBROMIDE 20 MG TABLET (FP) PO SCH (09:52)
[2016-12-30] MEDS: LEVOFLOXACIN 500 MG IVPB 100 ML IVPB SCH (10:31)
--- NOTE | 2016-12-30 10:38 | PN ---
Progress Note (short form) - Note Progress Note: Pt seen and examined. Her right wrist cat bite cellulitis is dramatically improved. Less pain, less swelling, less erythema, better ROM, NVI, no drainage. Overall much improved. No surgery necessary. DC and antibiotic plan as per ID and PMD. Can f/u with us PRN.
[2016-12-30 14:03] VITALS: BP 119/68; PULSE 78; TEMP 97.4
--- NOTE | 2016-12-30 15:01 | DS ---
Physical Examination Vital Signs: Vital Signs Temperature 97.4 F L 12/30/16 14:01 Pulse Rate 78 12/30/16 14:01 Respiratory Rate 17 12/30/16 14:01 Blood Pressure 119/68 12/30/16 14:01 O2 Sat by Pulse Oximetry (%) 94 L 12/30/16 09:00 Findings/Remarks: Pt. w/o fever, chills; hand swelling is down, pain improved. Pt. w/o abd. pain, N, V, diarrhea, CP, SOB. Constitutional: Yes: No Distress, Calm Cardiovascular: Yes: Regular Rate and Rhythm, S1, S2 Respiratory: Yes: Regular, CTA Bilaterally. No: Rales Gastrointestinal: Yes: Normal Bowel Sounds, Soft. No: Palpable Mass, Tenderness Extremities: Yes: Other (Right hand with minimal swelling, wounds closed, no drainage.) Edema: No Neurological: Yes: Alert, Oriented, Cran Nerves II-XII Intact Labs: CBC, BMP 12/30/16 06:35 12/30/16 06:35 Discharge Summary Reason For Visit: RT HAND CELLULITIS Current Active Problems Back pain (Acute) COPD (chronic obstructive pulmonary disease) (Acute) Cat bite (Acute) Cellulitis of right hand (Acute) Hypertension (Acute) Infected cat bite (Acute) Penicillin allergy (Acute) Hospital Course: Pt. came to ER after was bitten by a cat; she didn't want to be admitted but agreed to return the next day for f/u. At f/u her hand was worse ( although she was taking Cipro and CLinda). Pt was admitted, seen by ID and Hand Sx, treated with Levaquin and Clinda. She improved and would be DC'ed home on CIpro and Clinda. - Instructions Diet, Activity, Other Instructions: Resume diet. Referrals: Colton Majano MD [Primary Care Provider] - (next week; please call for appoitment) - Home Medications Comprehensive Discharge Medication List: Ambulatory Orders Calcium Carbonate/Vitamin D3 [Calcium 600-Vit D3 200 Tablet] 1 each PO DAILY 07/07 Magnesium Oxide [Magnesium] 500 mg PO DAILY 02/05/12 Montelukast Na [Singulair -] 10 mg PO HS 02/05/12 Ibandronate Sodium [Boniva (Monthly)] 150 mg PO Q30D 12/14/13 Levothyroxine Sodium 0.88 mcg PO DAILY 12/14/13 Potassium 550 mg PO DAILY 04/18/15 Ranitidine [Zantac -] 150 mg PO BID 04/18/15 Amlodipine Besylate [Norvasc -] 2.5 mg PO DAILY tablet 03/08/16 Atorvastatin Ca [Lipitor] 20 mg PO HS tablet 03/08/16 Buspirone HCl [Buspar -] 10 mg PO BID tablet 03/08/16 Calcium 500Mg/Vit-D 200 Units [Os-Carlos 500+D -] 1 tab PO DAILY tab 03/08/16 Citalopram Hydrobromide [Celexa -] 40 mg PO DAILY tablet 03/08/16 Meclizine HCl [Antivert -] 12.5 mg PO TID PRN #30 tablet 03/08/16 Gabapentin [Neurontin -] 600 mg PO BID 05/04/16 Hydromorphone HCl [Dilaudid] 2 mg PO PRN PRN 05/04/16 Levalbuterol Tartrate [Xopenex Hfa] 15 gm IH PRN PRN 05/04/16 Ciprofloxacin [Cipro -] 500 mg PO Q12H #20 tablet 12/25/16 Clindamycin [Cleocin -] 300 mg PO Q6HPO #30 capsule 12/25/16 Hydrocodone/Ibuprofen [VICOPROFEN 7.5/200 mg [NF MEDICATION]] 1 tab PO Q6H #15 tablet MDD 4mg 12/25/16
== END 2016-12-30 15:44 | disposition home or self-care (01) | DRG 603 ==
LOC: JER 16:31 → JERBED 17:23 → J5S 20:48
PROVIDERS: ADMIT Specialist; ATTEND Specialist
DX: L03.113 Cellulitis of right upper limb (principal); I42.6 Alcoholic cardiomyopathy; K21.9 Gastro-esophageal reflux disease without esophagitis; K63.5 Polyp of colon; K57.90 Diverticulosis of intestine, part unspecified, without perforation or abscess without bleeding; E78.00 Pure hypercholesterolemia, unspecified; E03.9 Hypothyroidism, unspecified; M19.90 Unspecified osteoarthritis, unspecified site; F41.8 Other specified anxiety disorders; J44.9 Chronic obstructive pulmonary disease, unspecified; M54.5 Low back pain; I10 Essential (primary) hypertension; S61.451A Open bite of right hand, initial encounter; W55.01XA Bitten by cat, initial encounter; Y92.89 Other specified places as the place of occurrence of the external cause; Z88.0 Allergy status to penicillin; Z87.891 Personal history of nicotine dependence
CPT/HCPCS: 36415; 73110-TC-RT; 73130-TC-RT; 77080-TC; 80048; 80053; 83605; 85025; 85027; 85651; 86140; 87040; 87070; 87205; 90715; 93005; 93010; 99282-25; 99283-25; J1644

== ENCOUNTER 2018-07-27 09:58 | Day surgery (SDC) | payer OTHER ==
[2018-07-26 14:57] VITALS: BMI 30.1
[2018-07-27 11:24] VITALS: TEMP 97.9
[2018-07-27 12:51] VITALS: BP 143/82; PULSE 56
--- NOTE | 2018-07-28 18:13 | PATH ---
Surgical Pathology Report Patient Name: SPENCER ROJAS [facility]. Rec. #: [id number] /Age/Gender: 1940 (Age: 77) / F Account: [id number] Location: [facility]-ENDOSCOPY Taken: 07/27/2018 Received: 07/27/2018 Reported: 07/28/2018 Physicians: Mikayla Curran M.D. Specimen(s) Received A: BX DUODENUM B: BX ANTRUM C: BX MID-ESOPHAGUS Clinical History Abdominal pain Postoperative diagnosis: Atrophic gastritis, sliding hiatal hernia Final Diagnosis A. DUODENUM SECOND PORTION AND BULB, BIOPSY: DUODENUM MUCOSA WITH NO SIGNIFICANT PATHOLOGIC CHANGE. NO HISTOLOGIC EVIDENCE OF CELIAC DISEASE. B. ANTRUM, BIOPSY: GASTRIC MUCOSA WITH MILD CHRONIC GASTRITIS. IMMUNOSTAIN FOR H. PYLORI IS NEGATIVE. NEGATIVE FOR INTESTINAL METAPLASIA. C. MID ESOPHAGUS, BIOPSY: ESOPHAGEAL MUCOSA WITH NO SIGNIFICANT PATHOLOGIC CHANGE. NO HISTOLOGIC EVIDENCE OF EOSINOPHILIC ESOPHAGITIS. Electronically Signed Tung Mcgee M.D. Gross Description A. Received in formalin, labeled "biopsy duodenum second portion"" are 3 morel, irregular portions of soft tissue averaging 0.3 cm. in greatest dimension. The specimens are submitted in toto in one cassette. B. Received in formalin, labeled "biopsy antrum" is a morel, irregular portion of soft tissue measuring 0.4 cm. in greatest dimension. The specimen is submitted in toto in one cassette. C. Received in formalin, labeled "biopsy midesophagus" are 2 morel, irregular portions of soft tissue measuring 0.1 and 0.3 cm. in greatest dimension. The specimens are submitted in toto in one cassette. /07/27/2018 saudi07/27/2018
== END 2018-07-27 12:20 | disposition home or self-care (01) ==
LOC: JASU-ENDO 09:58
PROVIDERS: ATTEND Internal Medicine Gastroenterology
PROC: 0DB68ZX Excision of Stomach, Via Natural or Artificial Opening Endoscopic, Diagnostic (ICD-10-PCS; 2018-07-27)
PROC: 0DB58ZX Excision of Esophagus, Via Natural or Artificial Opening Endoscopic, Diagnostic (ICD-10-PCS; principal; 2018-07-27 10:30)
DX: K29.50 Unspecified chronic gastritis without bleeding (principal)
CPT/HCPCS: 88305-TC; 88342-TC

== ENCOUNTER 2020-09-24 14:20 | Emergency (ER) | payer OTHER ==
[2020-09-24 14:44] VITALS: TEMP 97.8; BMI 25.4
[2020-09-24] MEDS ORDERED: ACETAMINOPHEN 1000 MG/100 ML VIAL (NON FORMULARY) IVPB ONE (15:18)
[2020-09-24 15:39] LABS: VENOUS BASE EXCESS 1.1 mmol/L (-2-2); VENOUS O2 SATURATION 78.1 % (70-80); VENOUS PCO2 41.2 mmHg (38-52); VENOUS PH 7.414 (7.310-7.410)
[2020-09-24] MEDS ORDERED: ACETAMINOPHEN INJECTION 100 ML IVPB ONE (15:40)
[2020-09-24 15:44] LABS: BASO % 0.2 % (0-2.0); HEMATOCRIT 40.8 % (32.4-45.2); HEMOGLOBIN 14.3 GM/dL (10.7-15.3); LYMPH % 5.9 % (8-40); MCH 31.3 pg (25.7-33.7); MCHC 35.1 g/dl (32.0-36.0); MEAN CELL VOLUME 89.3 fl (80-96); MEAN PLT VOLUME 8.1 fl (7.5-11.1); MONO % 6.4 % (3.8-10.2); NEUT % 87.5 % (42.8-82.8); PLATELET COUNT 235 K/MM3 (134-434); RBC 4.57 M/mm3 (3.60-5.2); RDW 14.5 % (11.6-15.6); WHITE BLOOD COUNT 13.4 K/mm3 (4.0-10.0)
[2020-09-24 15:49] LABS: INR 1.15 (0.83-1.09); PROTHROMBIN TIME (PATIENT) 14.1 SEC (9.7-13.0)
[2020-09-24 15:51] LABS: ACTIVATED PTT 28.1 SECONDS (25.2-36.5)
[2020-09-24 16:03] LABS: CHLORIDE 111 mmol/L (98-107); SODIUM 146 mmol/L (136-145)
[2020-09-24 16:05] LABS: CALCIUM 9.3 mg/dL (8.5-10.1)
[2020-09-24 16:06] LABS: ALBUMIN 3.9 g/dl (3.4-5.0); BLOOD UREA NITROGEN 21.7 mg/dL (7-18); CO2 25 mmol/L (21-32); GLUCOSE,RANDOM 120 mg/dL (74-106)
[2020-09-24 16:09] LABS: CREATININE 0.6 mg/dL (0.55-1.3); SGOT/AST 31 U/L (15-37); SGPT/ALT 25 U/L (13-61)
[2020-09-24 16:12] LABS: ALK PHOS 70 U/L (45-117)
[2020-09-24] MEDS ORDERED: LACTATED RINGERS SOLUTION 1000 ML INFUS.BAG IV ONE (16:33)
[2020-09-24] MEDS ORDERED: LIDOCAINE HCL 1%, 10 MG/ML (50 mL VIAL) INF ONE (16:52)
[2020-09-24] MEDS ORDERED: LIDOCAINE HCL 2% (50ML VIAL) SQ ONE (16:58)
[2020-09-24] MEDS ORDERED: LIDOCAINE HCL 2% (20ML MULTI-DOSE VIAL) ONE (17:00)
[2020-09-24 17:04] LABS: ANION GAP 10 MMOL/L (8-16)
[2020-09-24 17:07] LABS: POTASSIUM 2.9 mmol/L (3.5-5.1)
[2020-09-24] MEDS ORDERED: POTASSIUM CHLORIDE ORAL LIQUID 20 MEQ/15 ML PO ONE ×2 (17:25→19:51)
[2020-09-24] MEDS ORDERED: POTASSIUM CHLORIDE ORAL LIQUID 20 MEQ/15 ML ONE ×2 (17:39→20:25)
[2020-09-24 17:40] LABS: MAGNESIUM 2.1 mg/dL (1.8-2.4)
[2020-09-24 17:42] LABS: EPI CELLS 22 /uL (0-25.1); HYALINE CASTS 2 /uL (0-3.1); URINE APPEARANCE CLEAR; URINE BACTERIA 23 /uL (0-1359); URINE BILIRUBIN NEGATIVE (NEGATIVE); URINE COLOR YELLOW; URINE GLUCOSE (UA) NEGATIVE (NEGATIVE); URINE KETONE TRACE (NEGATIVE); URINE LEUK ESTERASE NEGATIVE (NEGATIVE); URINE NITRITE NEGATIVE (NEGATIVE); URINE PROTEIN 2+ (NEGATIVE); URINE WBC 7 /uL (0-25.8)
[2020-09-24] MEDS ORDERED: KCL 10 MEQ IVPB 10 MEQ/100 ML INFUS.BAG IVPB SCH (19:15)
[2020-09-24 19:38] LABS: LIPASE 147 U/L (73-393)
[2020-09-24] MEDS ORDERED: KCL 10 MEQ IVPB 10 MEQ/100 ML INFUS.BAG IVPB ONE (19:48)
[2020-09-24 20:20] VITALS: BP 122/66; PULSE 71
[2020-09-24 20:22] LABS: URINE RBC 202.9 /uL (0-23.9)
== END 2020-09-24 20:47 | disposition short-term general hospital (02) ==
LOC: JER 14:20
PROC: 3E0333Z Introduction of Anti-inflammatory into Peripheral Vein, Percutaneous Approach (ICD-10-PCS; principal; 2020-09-24)
DX: S22.41XA Multiple fractures of ribs, right side, initial encounter for closed fracture (principal); S27.0XXA Traumatic pneumothorax, initial encounter
CPT/HCPCS: 36415; 70450-TC; 71045-TC-FY; 71260-TC; 72125-TC; 72128-TC; 72131-TC; 73523-TC-FY; 74177-TC; 76604; 76705-TC; 80053; 81003; 82550; 82553; 82803; 83605; 83690; 83735; 84484; 85025; 85610; 85730; 86850; 86900; 86901; 87040; 87077; 87086; 87804; 93005; 93010; 93308; 99291; C9803; J0131; Q9967; U0003

== ENCOUNTER 2021-09-02 15:02 | Emergency (ER) | payer OTHER ==
[2021-09-02 15:35] VITALS: BP 112/74; PULSE 74; TEMP 98; BMI 19.1
== END 2021-09-03 01:24 ==
LOC: JER 15:02
DX: S00.03XA Contusion of scalp, initial encounter (principal); W19.XXXA Unspecified fall, initial encounter
CPT/HCPCS: 70450-TC; 72125-TC; 99284-25

== ENCOUNTER 2022-03-02 12:59 | Inpatient (IN) | payer OTHER ==
[2022-03-02] MEDS ORDERED: HEPARIN NA (PORCINE) 5,000 UNITS/ML 1ML VIAL IVPUSH ONE (14:37)
[2022-03-02 15:37] LABS: BASO % 0.9 % (0-2.0); EOS % 1.3 % (0-4.5); EPI CELLS 3 /uL (0-25.1); HEMATOCRIT 41.9 % (32.4-45.2); HEMOGLOBIN 14.3 GM/dL (10.7-15.3); HYALINE CASTS 3 /uL (0-3.1); LYMPH % 25.9 % (8-40); MCH 30.4 pg (25.7-33.7); MEAN CELL VOLUME 89.3 fl (80-96); MEAN PLT VOLUME 7.6 fl (7.5-11.1); MONO % 8.7 % (3.8-10.2); NEUT % 63.2 % (42.8-82.8); PH,URINE 6.5 (5.0-8.0); PLATELET COUNT 195 10^3/uL (134-434); RBC 4.69 M/mm3 (3.60-5.2); URINE APPEARANCE CLOUDY; URINE BACTERIA >9,000 /uL (0-1359); URINE BILIRUBIN NEGATIVE (NEGATIVE); URINE COLOR YELLOW; URINE GLUCOSE (UA) NEGATIVE (NEGATIVE); URINE KETONE NEGATIVE (NEGATIVE); URINE LEUK ESTERASE 2+ (NEGATIVE); URINE NITRITE NEGATIVE (NEGATIVE); URINE PROTEIN NEGATIVE (NEGATIVE); URINE RBC 307 /uL (0-23.9); URINE WBC 409 /uL (0-25.8); WHITE BLOOD COUNT 6.6 K/mm3 (4.0-10.0)
[2022-03-02 15:45] LABS: CALCIUM 9.1 mg/dL (8.5-10.1)
[2022-03-02 15:46] LABS: BLOOD UREA NITROGEN 19.3 mg/dL (7-18)
[2022-03-02 15:49] LABS: CREATININE 0.6 mg/dL (0.55-1.3)
[2022-03-02 15:50] LABS: BILIRUBIN,TOTAL 0.7 mg/dL (0.2-1); TOT PROT 7.1 g/dl (6.4-8.2)
[2022-03-02] MEDS ORDERED: SULFAMETHOXAZOLE/TRIMETHOPRIM 800MG/160MG D.S. TABLET PO ONE (16:07)
[2022-03-02] MEDS ORDERED: CIPROFLOXACIN 400 MG/D5W 400 MG/200 ML IVPB IVPB ONE (16:31)
[2022-03-02] MEDS ORDERED: SULFAMETHOXAZOLE/TRIMETHOPRIM 800MG/160MG D.S. TABLET ONE (16:51)
[2022-03-02 22:50] VITALS: BMI 21.2
[2022-03-03] MEDS ORDERED: MELATONIN 5 MG TABLETS PO ONE (01:30)
[2022-03-03] MEDS ORDERED: MAG HYDROX/AL HYDROX/SIMETH 30 ML UNIT-DOSE CUP PO PRN (09:30)
[2022-03-03] MEDS ORDERED: CALCIUM (OYSTER SHELL) 500 MG TABLET (FP) PO SCH (10:00)
[2022-03-03] MEDS ORDERED: LEVOTHYROXINE NA 88 MCG TABLET (FP) PO SCH (10:00)
[2022-03-03] MEDS: ASPIRIN COATED 81 MG TABLET.EC PO SCH (10:55)
[2022-03-03] MEDS: FAMOTIDINE 20 MG TABLET PO SCH (10:55)
[2022-03-03] MEDS: MULTIVITAMINS (DAILY MVI) TABLET (FP) PO SCH (10:56)
[2022-03-03] MEDS: amLODIPine BESYLATE 2.5 MG TABLET (FP) PO SCH (10:56)
[2022-03-03] MEDS: MAGNESIUM OXIDE 400 MG TABLET (FP) PO SCH (10:56)
[2022-03-03] MEDS: ALBUTEROL SO4 HFA INHALER IH SCH ×2 (10:56→21:21)
[2022-03-03] MEDS: CHOLECALCIFEROL (VIT D3) 1,000 UNIT (25 MCG) TABLET PO SCH (10:57)
[2022-03-03] MEDS: HEPARIN NA (PORCINE) 5,000 UNITS/ML 1ML VIAL SQ SCH ×2 (10:57→21:15)
[2022-03-03] MEDS: ATORVASTATIN CA 20 MG TABLET (FP) PO SCH (21:15)
[2022-03-03] MEDS: MONTELUKAST NA 10 MG TABLET PO SCH (21:15)
[2022-03-04] MEDS: LEVOTHYROXINE NA 88 MCG TABLET (FP) PO SCH (06:35)
[2022-03-04 08:31] LABS: BASO % 0.9 % (0-2.0); EOS % 2.1 % (0-4.5); HEMOGLOBIN 14.3 GM/dL (10.7-15.3); LYMPH % 33.5 % (8-40); MEAN CELL VOLUME 88.5 fl (80-96); MEAN PLT VOLUME 7.2 fl (7.5-11.1); MONO % 10.4 % (3.8-10.2); NEUT % 53.1 % (42.8-82.8); PLATELET COUNT 188 10^3/uL (134-434); RBC 4.63 M/mm3 (3.60-5.2); RDW 14.7 % (11.6-15.6); WHITE BLOOD COUNT 5.5 K/mm3 (4.0-10.0)
[2022-03-04 09:03] LABS: ALBUMIN 3.8 g/dl (3.4-5.0); BLOOD UREA NITROGEN 23.5 mg/dL (7-18); CALCIUM 9.2 mg/dL (8.5-10.1)
[2022-03-04 09:06] LABS: CREATININE 0.8 mg/dL (0.55-1.3)
[2022-03-04 09:07] LABS: BILIRUBIN,TOTAL 1.3 mg/dL (0.2-1)
[2022-03-04 09:08] LABS: TOT PROT 6.5 g/dl (6.4-8.2)
[2022-03-04] MEDS: MULTIVITAMINS (DAILY MVI) TABLET (FP) PO SCH (10:43)
[2022-03-04] MEDS: CHOLECALCIFEROL (VIT D3) 1,000 UNIT (25 MCG) TABLET PO SCH (10:43)
[2022-03-04] MEDS: HEPARIN NA (PORCINE) 5,000 UNITS/ML 1ML VIAL SQ SCH ×2 (10:43→22:27)
[2022-03-04] MEDS: amLODIPine BESYLATE 2.5 MG TABLET (FP) PO SCH (10:43)
[2022-03-04] MEDS: ASPIRIN COATED 81 MG TABLET.EC PO SCH (10:43)
[2022-03-04] MEDS: FAMOTIDINE 20 MG TABLET PO SCH (10:43)
[2022-03-04] MEDS: MAGNESIUM OXIDE 400 MG TABLET (FP) PO SCH (10:43)
[2022-03-04] MEDS: ALBUTEROL SO4 HFA INHALER IH SCH ×2 (10:45→22:27)
[2022-03-04] MEDS: POTASSIUM CHLORIDE TABS 10 MEQ TABLET.ER (FP) PO SCH (12:40)
[2022-03-04] MEDS: CALCIUM (OYSTER SHELL) 500 MG TABLET (FP) PO SCH (16:00)
[2022-03-04] MEDS: ATORVASTATIN CA 20 MG TABLET (FP) PO SCH (22:27)
[2022-03-04] MEDS: MONTELUKAST NA 10 MG TABLET PO SCH (22:27)
[2022-03-05] MEDS: LEVOTHYROXINE NA 88 MCG TABLET (FP) PO SCH (07:40)
[2022-03-05] MEDS: MULTIVITAMINS (DAILY MVI) TABLET (FP) PO SCH (09:54)
[2022-03-05] MEDS: ASPIRIN COATED 81 MG TABLET.EC PO SCH (09:54)
[2022-03-05] MEDS: POTASSIUM CHLORIDE TABS 10 MEQ TABLET.ER (FP) PO SCH (09:54)
[2022-03-05] MEDS: MAGNESIUM OXIDE 400 MG TABLET (FP) PO SCH (09:54)
[2022-03-05] MEDS: HEPARIN NA (PORCINE) 5,000 UNITS/ML 1ML VIAL SQ SCH ×2 (09:54→21:37)
[2022-03-05] MEDS: CHOLECALCIFEROL (VIT D3) 1,000 UNIT (25 MCG) TABLET PO SCH (09:54)
[2022-03-05] MEDS: ALBUTEROL SO4 HFA INHALER IH SCH ×3 (10:03→21:38)
[2022-03-05] MEDS: FAMOTIDINE 20 MG TABLET PO SCH (11:40)
[2022-03-05] MEDS: amLODIPine BESYLATE 2.5 MG TABLET (FP) PO SCH (11:50)
[2022-03-05] MEDS: CALCIUM (OYSTER SHELL) 500 MG TABLET (FP) PO SCH (14:39)
[2022-03-05] MEDS: ATORVASTATIN CA 20 MG TABLET (FP) PO SCH (21:37)
[2022-03-05] MEDS: MONTELUKAST NA 10 MG TABLET PO SCH (21:37)
[2022-03-06] MEDS: LEVOTHYROXINE NA 88 MCG TABLET (FP) PO SCH (06:27)
[2022-03-06] MEDS: MULTIVITAMINS (DAILY MVI) TABLET (FP) PO SCH (09:21)
[2022-03-06] MEDS: CHOLECALCIFEROL (VIT D3) 1,000 UNIT (25 MCG) TABLET PO SCH (09:21)
[2022-03-06] MEDS: FAMOTIDINE 20 MG TABLET PO SCH (09:21)
[2022-03-06] MEDS: POTASSIUM CHLORIDE TABS 10 MEQ TABLET.ER (FP) PO SCH (09:22)
[2022-03-06] MEDS: HEPARIN NA (PORCINE) 5,000 UNITS/ML 1ML VIAL SQ SCH ×2 (09:22→22:21)
[2022-03-06] MEDS: ASPIRIN COATED 81 MG TABLET.EC PO SCH (09:22)
[2022-03-06] MEDS: CALCIUM (OYSTER SHELL) 500 MG TABLET (FP) PO SCH (09:22)
[2022-03-06] MEDS: MAGNESIUM OXIDE 400 MG TABLET (FP) PO SCH (09:22)
[2022-03-06] MEDS: ALBUTEROL SO4 HFA INHALER IH SCH ×2 (09:22→22:26)
[2022-03-06 09:41] LABS: BASO % 1.1 % (0-2.0); EOS % 2.9 % (0-4.5); HEMATOCRIT 42.4 % (32.4-45.2); HEMOGLOBIN 14.7 GM/dL (10.7-15.3); LYMPH % 38.1 % (8-40); MCHC 34.6 g/dl (32.0-36.0); MEAN CELL VOLUME 89.8 fl (80-96); MEAN PLT VOLUME 7.4 fl (7.5-11.1); MONO % 8.3 % (3.8-10.2); NEUT % 49.6 % (42.8-82.8); PLATELET COUNT 182 10^3/uL (134-434); RBC 4.72 M/mm3 (3.60-5.2); RDW 14.6 % (11.6-15.6); WHITE BLOOD COUNT 5.4 K/mm3 (4.0-10.0)
[2022-03-06 10:01] LABS: ALBUMIN 3.7 g/dl (3.4-5.0); CALCIUM 9.4 mg/dL (8.5-10.1)
[2022-03-06 10:02] LABS: BLOOD UREA NITROGEN 25.4 mg/dL (7-18)
[2022-03-06 10:04] LABS: CREATININE 0.8 mg/dL (0.55-1.3)
[2022-03-06 10:05] LABS: TOT PROT 6.6 g/dl (6.4-8.2)
[2022-03-06 10:16] LABS: BILIRUBIN,TOTAL 0.5 mg/dL (0.2-1)
[2022-03-06] MEDS: ATORVASTATIN CA 20 MG TABLET (FP) PO SCH (22:21)
[2022-03-06] MEDS: MELATONIN 5 MG TABLETS PO PRN (22:21)
[2022-03-06] MEDS: MONTELUKAST NA 10 MG TABLET PO SCH (22:21)
[2022-03-07] MEDS: LEVOTHYROXINE NA 88 MCG TABLET (FP) PO SCH (06:17)
[2022-03-07] MEDS: ALBUTEROL SO4 HFA INHALER IH SCH ×2 (10:31→21:56)
[2022-03-07] MEDS: MULTIVITAMINS (DAILY MVI) TABLET (FP) PO SCH (10:31)
[2022-03-07] MEDS: FAMOTIDINE 20 MG TABLET PO SCH (10:31)
[2022-03-07] MEDS: CHOLECALCIFEROL (VIT D3) 1,000 UNIT (25 MCG) TABLET PO SCH (10:31)
[2022-03-07] MEDS: POTASSIUM CHLORIDE TABS 10 MEQ TABLET.ER (FP) PO SCH (10:31)
[2022-03-07] MEDS: ASPIRIN COATED 81 MG TABLET.EC PO SCH (10:31)
[2022-03-07] MEDS: HEPARIN NA (PORCINE) 5,000 UNITS/ML 1ML VIAL SQ SCH ×2 (10:32→21:37)
[2022-03-07] MEDS: MAGNESIUM OXIDE 400 MG TABLET (FP) PO SCH (10:32)
[2022-03-07] MEDS: CALCIUM (OYSTER SHELL) 500 MG TABLET (FP) PO SCH (10:34)
[2022-03-07] MEDS: ATORVASTATIN CA 20 MG TABLET (FP) PO SCH (21:37)
[2022-03-07] MEDS: MONTELUKAST NA 10 MG TABLET PO SCH (21:37)
[2022-03-07] MEDS: MELATONIN 5 MG TABLETS PO PRN (21:37)
[2022-03-08] MEDS: LEVOTHYROXINE NA 88 MCG TABLET (FP) PO SCH (06:08)
[2022-03-08] MEDS: FAMOTIDINE 20 MG TABLET PO SCH (09:16)
[2022-03-08] MEDS: HEPARIN NA (PORCINE) 5,000 UNITS/ML 1ML VIAL SQ SCH ×2 (09:16→21:52)
[2022-03-08] MEDS: POTASSIUM CHLORIDE TABS 10 MEQ TABLET.ER (FP) PO SCH (09:16)
[2022-03-08] MEDS: CALCIUM (OYSTER SHELL) 500 MG TABLET (FP) PO SCH (09:16)
[2022-03-08] MEDS: CHOLECALCIFEROL (VIT D3) 1,000 UNIT (25 MCG) TABLET PO SCH (09:16)
[2022-03-08] MEDS: MAGNESIUM OXIDE 400 MG TABLET (FP) PO SCH (09:16)
[2022-03-08] MEDS: MULTIVITAMINS (DAILY MVI) TABLET (FP) PO SCH (09:16)
[2022-03-08] MEDS: ASPIRIN COATED 81 MG TABLET.EC PO SCH (09:16)
[2022-03-08] MEDS: ALBUTEROL SO4 HFA INHALER IH SCH ×2 (09:17→21:55)
[2022-03-08] MEDS ORDERED: SODIUM PHOSPHATE/NA BIPHOS 133 ML ENEMA RC PRN (12:11)
[2022-03-08] MEDS: POLYETHYLENE GLYCOL (HEALTHYLAX) 3350 17 GM PACKET PO SCH ×2 (12:31→21:52)
[2022-03-08] MEDS: ATORVASTATIN CA 20 MG TABLET (FP) PO SCH (21:52)
[2022-03-08] MEDS: MONTELUKAST NA 10 MG TABLET PO SCH (21:52)
[2022-03-09] MEDS: LEVOTHYROXINE NA 88 MCG TABLET (FP) PO SCH (06:34)
[2022-03-09] MEDS: CHOLECALCIFEROL (VIT D3) 1,000 UNIT (25 MCG) TABLET PO SCH (09:43)
[2022-03-09] MEDS: POLYETHYLENE GLYCOL (HEALTHYLAX) 3350 17 GM PACKET PO SCH ×2 (09:43→21:20)
[2022-03-09] MEDS: MAGNESIUM OXIDE 400 MG TABLET (FP) PO SCH (09:43)
[2022-03-09] MEDS: POTASSIUM CHLORIDE TABS 10 MEQ TABLET.ER (FP) PO SCH (09:43)
[2022-03-09] MEDS: ASPIRIN COATED 81 MG TABLET.EC PO SCH (09:43)
[2022-03-09] MEDS: MULTIVITAMINS (DAILY MVI) TABLET (FP) PO SCH (09:44)
[2022-03-09] MEDS: HEPARIN NA (PORCINE) 5,000 UNITS/ML 1ML VIAL SQ SCH ×2 (09:44→21:14)
[2022-03-09] MEDS: CALCIUM (OYSTER SHELL) 500 MG TABLET (FP) PO SCH (09:44)
[2022-03-09] MEDS: ALBUTEROL SO4 HFA INHALER IH SCH ×3 (09:44→21:48)
[2022-03-09] MEDS: FAMOTIDINE 20 MG TABLET PO SCH (09:44)
[2022-03-09] MEDS: ATORVASTATIN CA 20 MG TABLET (FP) PO SCH (21:13)
[2022-03-09] MEDS: MONTELUKAST NA 10 MG TABLET PO SCH (21:13)
[2022-03-09] MEDS: MELATONIN 5 MG TABLETS PO PRN (21:16)
[2022-03-09 21:31] VITALS: RESP 20
[2022-03-10] MEDS: LEVOTHYROXINE NA 88 MCG TABLET (FP) PO SCH (06:06)
[2022-03-10] MEDS: CHOLECALCIFEROL (VIT D3) 1,000 UNIT (25 MCG) TABLET PO SCH (09:44)
[2022-03-10] MEDS: ASPIRIN COATED 81 MG TABLET.EC PO SCH (09:44)
[2022-03-10] MEDS: MULTIVITAMINS (DAILY MVI) TABLET (FP) PO SCH (09:44)
[2022-03-10] MEDS: ALBUTEROL SO4 HFA INHALER IH SCH ×2 (09:45→21:12)
[2022-03-10] MEDS: FAMOTIDINE 20 MG TABLET PO SCH (09:45)
[2022-03-10] MEDS: POTASSIUM CHLORIDE TABS 10 MEQ TABLET.ER (FP) PO SCH (09:45)
[2022-03-10] MEDS: POLYETHYLENE GLYCOL (HEALTHYLAX) 3350 17 GM PACKET PO SCH ×2 (09:45→21:09)
[2022-03-10] MEDS: MAGNESIUM OXIDE 400 MG TABLET (FP) PO SCH (09:45)
[2022-03-10] MEDS: CALCIUM (OYSTER SHELL) 500 MG TABLET (FP) PO SCH (09:45)
[2022-03-10] MEDS: HEPARIN NA (PORCINE) 5,000 UNITS/ML 1ML VIAL SQ SCH ×2 (10:36→21:09)
[2022-03-10 10:43] LABS: BLOOD UREA NITROGEN 29.7 mg/dL (7-18); CALCIUM 9.4 mg/dL (8.5-10.1)
[2022-03-10 10:47] LABS: CREATININE 0.8 mg/dL (0.55-1.3)
[2022-03-10] MEDS: MONTELUKAST NA 10 MG TABLET PO SCH (21:11)
[2022-03-10] MEDS: ATORVASTATIN CA 20 MG TABLET (FP) PO SCH (21:11)
[2022-03-11] MEDS: LEVOTHYROXINE NA 88 MCG TABLET (FP) PO SCH (06:36)
[2022-03-11] MEDS: POLYETHYLENE GLYCOL (HEALTHYLAX) 3350 17 GM PACKET PO SCH (09:21)
[2022-03-11] MEDS: CHOLECALCIFEROL (VIT D3) 1,000 UNIT (25 MCG) TABLET PO SCH (09:21)
[2022-03-11] MEDS: MULTIVITAMINS (DAILY MVI) TABLET (FP) PO SCH (09:21)
[2022-03-11] MEDS: FAMOTIDINE 20 MG TABLET PO SCH (09:21)
[2022-03-11] MEDS: ASPIRIN COATED 81 MG TABLET.EC PO SCH (09:21)
[2022-03-11] MEDS: HEPARIN NA (PORCINE) 5,000 UNITS/ML 1ML VIAL SQ SCH (09:21)
[2022-03-11] MEDS: MAGNESIUM OXIDE 400 MG TABLET (FP) PO SCH (09:21)
[2022-03-11] MEDS: POTASSIUM CHLORIDE TABS 10 MEQ TABLET.ER (FP) PO SCH (09:21)
[2022-03-11] MEDS: ALBUTEROL SO4 HFA INHALER IH SCH (09:22)
[2022-03-11] MEDS: CALCIUM (OYSTER SHELL) 500 MG TABLET (FP) PO SCH (09:22)
[2022-03-11 15:33] VITALS: BP 151/73; PULSE 99; TEMP 97.8
== END 2022-03-11 16:11 | DRG 690 ==
LOC: JER 12:59 → JERBED 14:37 → J8W 21:15
PROVIDERS: ADMIT Internal Medicine; ATTEND Internal Medicine
DX: N39.0 Urinary tract infection, site not specified (principal); E03.9 Hypothyroidism, unspecified; M15.9 Polyosteoarthritis, unspecified; J44.9 Chronic obstructive pulmonary disease, unspecified; R26.9 Unspecified abnormalities of gait and mobility; R53.1 Weakness; I10 Essential (primary) hypertension; M51.24 Other intervertebral disc displacement, thoracic region; B96.1 Klebsiella pneumoniae [K. pneumoniae] as the cause of diseases classified elsewhere
CPT/HCPCS: 36415; 71045-TC-FY; 72141-TC; 72146-TC; 80048; 80053; 81003; 83690; 84439; 84443; 85025; 87086; 87186; 93005; 93010; 97116-GP; 97161-GP; 99285-25; C9803-CS; J1644; U0003; U0005

== ENCOUNTER 2022-05-12 12:19 | Inpatient (IN) | payer OTHER ==
[2022-05-12 12:41] VITALS: BMI 23.6
[2022-05-12 14:24] LABS: BASO % 0.8 % (0-2.0); EOS % 0.9 % (0-4.5); HEMATOCRIT 42.4 % (32.4-45.2); HEMOGLOBIN 13.9 GM/dL (10.7-15.3); LYMPH % 19.9 % (8-40); MCH 29.8 pg (25.7-33.7); MCHC 32.7 g/dl (32.0-36.0); MEAN CELL VOLUME 91.1 fl (80-96); MEAN PLT VOLUME 7.4 fl (7.5-11.1); MONO % 8.4 % (3.8-10.2); PLATELET COUNT 234 10^3/uL (134-434); RBC 4.66 M/mm3 (3.60-5.2); WHITE BLOOD COUNT 8.7 K/mm3 (4.0-10.0)
[2022-05-12 14:28] LABS: EPI CELLS 5 /uL (0-25.1); HYALINE CASTS 0 /uL (0-3.1); PH,URINE 7.5 (5.0-8.0); URINE APPEARANCE CLOUDY; URINE BACTERIA >9,000 /uL (0-1359); URINE BILIRUBIN NEGATIVE (NEGATIVE); URINE COLOR YELLOW; URINE GLUCOSE (UA) NEGATIVE (NEGATIVE); URINE KETONE NEGATIVE (NEGATIVE); URINE LEUK ESTERASE 3+ (NEGATIVE); URINE NITRITE POSITIVE (NEGATIVE); URINE PROTEIN TRACE (NEGATIVE); URINE RBC 47 /uL (0-23.9); URINE UROBILINOGEN 0.2 mg/dL (0.2-1.0); URINE WBC 4042 /uL (0-25.8)
[2022-05-12 14:45] LABS: CALCIUM 9.4 mg/dL (8.5-10.1)
[2022-05-12 14:46] LABS: ALBUMIN 4.2 g/dl (3.4-5.0); BLOOD UREA NITROGEN 25.2 mg/dL (7-18)
[2022-05-12 14:49] LABS: CREATININE 0.8 mg/dL (0.55-1.3)
[2022-05-12 14:50] LABS: BILIRUBIN,TOTAL 0.7 mg/dL (0.2-1); TOT PROT 7.2 g/dl (6.4-8.2)
[2022-05-12] MEDS ORDERED: MAG HYDROX/AL HYDROX/SIMETH 30 ML UNIT-DOSE CUP PO PRN (23:12)
[2022-05-12] MEDS ORDERED: IBANDRONATE SODIUM 150 MG PO SCH (23:15)
[2022-05-13] MEDS: LEVOTHYROXINE NA 88 MCG TABLET (FP) PO SCH (06:24)
[2022-05-13] MEDS ORDERED: COPPER PO SCH (10:00)
[2022-05-13] MEDS ORDERED: ZINC PO SCH (10:00)
[2022-05-13] MEDS ORDERED: [UNRECOGNIZED DRUG - OTHER] PO SCH (10:00)
[2022-05-13] MEDS ORDERED: LUTEIN PO SCH (10:00)
[2022-05-13] MEDS ORDERED: VITAMIN E PO SCH (10:00)
[2022-05-13] MEDS ORDERED: ASCORBIC ACID PO SCH (10:00)
[2022-05-13] MEDS: CALCIUM 500MG/VIT-D 200 UNITS COMBO TABLET (FP) PO SCH (10:19)
[2022-05-13] MEDS: MULTIVITAMINS (DAILY MVI) TABLET (FP) PO SCH (10:19)
[2022-05-13] MEDS: ASPIRIN COATED 81 MG TABLET.EC PO SCH (10:19)
[2022-05-13] MEDS: PREGABALIN 100 MG CAPSULE PO SCH (10:19)
[2022-05-13] MEDS: ALBUTEROL SO4 HFA INHALER IH SCH ×2 (10:19→21:26)
[2022-05-13] MEDS: FAMOTIDINE 20 MG TABLET PO SCH ×2 (10:19→21:17)
[2022-05-13] MEDS: MAGNESIUM OXIDE 400 MG TABLET (FP) PO SCH (10:19)
[2022-05-13 10:27] LABS: BASO % 0.6 % (0-2.0); EOS % 1.7 % (0-4.5); HEMATOCRIT 39.5 % (32.4-45.2); HEMOGLOBIN 13.1 GM/dL (10.7-15.3); MCH 30.1 pg (25.7-33.7); MCHC 33.1 g/dl (32.0-36.0); MEAN CELL VOLUME 90.9 fl (80-96); MEAN PLT VOLUME 7.4 fl (7.5-11.1); MONO % 8.6 % (3.8-10.2); NEUT % 70.1 % (42.8-82.8); PLATELET COUNT 239 10^3/uL (134-434); RBC 4.34 M/mm3 (3.60-5.2); WHITE BLOOD COUNT 7.7 K/mm3 (4.0-10.0)
[2022-05-13 10:52] LABS: ALBUMIN 3.5 g/dl (3.4-5.0); CALCIUM 8.7 mg/dL (8.5-10.1)
[2022-05-13 10:55] LABS: CREATININE 0.8 mg/dL (0.55-1.3)
[2022-05-13 10:57] LABS: BILIRUBIN,TOTAL 0.8 mg/dL (0.2-1); TOT PROT 6.4 g/dl (6.4-8.2)
[2022-05-13] MEDS ORDERED: HEPARIN NA (PORCINE) 5,000 UNITS/ML 1ML VIAL SQ SCH (14:00)
[2022-05-13] MEDS: MONTELUKAST NA 10 MG TABLET PO SCH (21:17)
[2022-05-13] MEDS: HEPARIN NA (PORCINE) 5,000 UNITS/ML 1ML VIAL SQ SCH (21:17)
[2022-05-13] MEDS: ATORVASTATIN CA 20 MG TABLET (FP) PO SCH (21:17)
[2022-05-13] MEDS: ACETAMINOPHEN 325 MG TABLET (FP) PO PRN (21:17)
[2022-05-14] MEDS: LEVOTHYROXINE NA 88 MCG TABLET (FP) PO SCH (06:02)
[2022-05-14] MEDS: PREGABALIN 100 MG CAPSULE PO SCH (11:04)
[2022-05-14] MEDS: ALBUTEROL SO4 HFA INHALER IH SCH ×2 (11:04→21:33)
[2022-05-14] MEDS: MAGNESIUM OXIDE 400 MG TABLET (FP) PO SCH (11:04)
[2022-05-14] MEDS: HEPARIN NA (PORCINE) 5,000 UNITS/ML 1ML VIAL SQ SCH ×2 (11:04→21:26)
[2022-05-14] MEDS: MULTIVITAMINS (DAILY MVI) TABLET (FP) PO SCH (11:05)
[2022-05-14] MEDS: FAMOTIDINE 20 MG TABLET PO SCH ×2 (11:05→21:26)
[2022-05-14] MEDS: ASPIRIN COATED 81 MG TABLET.EC PO SCH (11:05)
[2022-05-14] MEDS: CALCIUM 500MG/VIT-D 200 UNITS COMBO TABLET (FP) PO SCH (11:17)
[2022-05-14] MEDS: ATORVASTATIN CA 20 MG TABLET (FP) PO SCH (21:26)
[2022-05-14] MEDS: MONTELUKAST NA 10 MG TABLET PO SCH (21:26)
[2022-05-15] MEDS: LEVOTHYROXINE NA 88 MCG TABLET (FP) PO SCH (06:12)
[2022-05-15] MEDS: CALCIUM 500MG/VIT-D 200 UNITS COMBO TABLET (FP) PO SCH (11:13)
[2022-05-15] MEDS: HEPARIN NA (PORCINE) 5,000 UNITS/ML 1ML VIAL SQ SCH ×2 (11:13→21:23)
[2022-05-15] MEDS: ALBUTEROL SO4 HFA INHALER IH SCH ×2 (11:13→21:26)
[2022-05-15] MEDS: MULTIVITAMINS (DAILY MVI) TABLET (FP) PO SCH (11:13)
[2022-05-15] MEDS: MAGNESIUM OXIDE 400 MG TABLET (FP) PO SCH (11:13)
[2022-05-15] MEDS: PREGABALIN 100 MG CAPSULE PO SCH ×2 (11:13→11:58)
[2022-05-15] MEDS: ASPIRIN COATED 81 MG TABLET.EC PO SCH (11:14)
[2022-05-15] MEDS: FAMOTIDINE 20 MG TABLET PO SCH ×2 (11:14→21:23)
[2022-05-15] MEDS: MONTELUKAST NA 10 MG TABLET PO SCH (21:23)
[2022-05-15] MEDS: ATORVASTATIN CA 20 MG TABLET (FP) PO SCH (21:23)
[2022-05-15] MEDS: ACETAMINOPHEN 325 MG TABLET (FP) PO PRN (21:27)
[2022-05-16] MEDS: LEVOTHYROXINE NA 88 MCG TABLET (FP) PO SCH (06:16)
[2022-05-16] MEDS: PREGABALIN 100 MG CAPSULE PO SCH (09:34)
[2022-05-16] MEDS: HEPARIN NA (PORCINE) 5,000 UNITS/ML 1ML VIAL SQ SCH ×2 (09:34→21:40)
[2022-05-16] MEDS: MAGNESIUM OXIDE 400 MG TABLET (FP) PO SCH (09:34)
[2022-05-16] MEDS: MULTIVITAMINS (DAILY MVI) TABLET (FP) PO SCH (09:34)
[2022-05-16] MEDS: CALCIUM 500MG/VIT-D 200 UNITS COMBO TABLET (FP) PO SCH (09:34)
[2022-05-16] MEDS: FAMOTIDINE 20 MG TABLET PO SCH ×2 (09:34→21:40)
[2022-05-16] MEDS: ASPIRIN COATED 81 MG TABLET.EC PO SCH (09:34)
[2022-05-16] MEDS: ALBUTEROL SO4 HFA INHALER IH SCH ×2 (09:35→21:50)
[2022-05-16] MEDS: MONTELUKAST NA 10 MG TABLET PO SCH (21:40)
[2022-05-16] MEDS: ATORVASTATIN CA 20 MG TABLET (FP) PO SCH (21:40)
[2022-05-17] MEDS: LEVOTHYROXINE NA 88 MCG TABLET (FP) PO SCH (06:10)
[2022-05-17 08:19] LABS: BASO % 0.9 % (0-2.0); EOS % 3.4 % (0-4.5); HEMATOCRIT 39.4 % (32.4-45.2); HEMOGLOBIN 13.2 GM/dL (10.7-15.3); LYMPH % 40.2 % (8-40); MCH 30.4 pg (25.7-33.7); MCHC 33.4 g/dl (32.0-36.0); MEAN PLT VOLUME 7.4 fl (7.5-11.1); MONO % 9.4 % (3.8-10.2); NEUT % 46.1 % (42.8-82.8); PLATELET COUNT 228 10^3/uL (134-434); RBC 4.33 M/mm3 (3.60-5.2); RDW 13.9 % (11.6-15.6)
[2022-05-17 08:38] LABS: ALBUMIN 3.2 g/dl (3.4-5.0)
[2022-05-17 08:42] LABS: BILIRUBIN,TOTAL 0.3 mg/dL (0.2-1); CREATININE 0.8 mg/dL (0.55-1.3)
[2022-05-17 08:44] LABS: TOT PROT 6.2 g/dl (6.4-8.2)
[2022-05-17] MEDS: MULTIVITAMINS (DAILY MVI) TABLET (FP) PO SCH (09:29)
[2022-05-17] MEDS: ASPIRIN COATED 81 MG TABLET.EC PO SCH (09:29)
[2022-05-17] MEDS: MAGNESIUM OXIDE 400 MG TABLET (FP) PO SCH (09:29)
[2022-05-17] MEDS: PREGABALIN 100 MG CAPSULE PO SCH (09:29)
[2022-05-17] MEDS: HEPARIN NA (PORCINE) 5,000 UNITS/ML 1ML VIAL SQ SCH ×2 (09:29→22:28)
[2022-05-17] MEDS: CALCIUM 500MG/VIT-D 200 UNITS COMBO TABLET (FP) PO SCH (09:29)
[2022-05-17] MEDS: FAMOTIDINE 20 MG TABLET PO SCH ×2 (09:29→22:29)
[2022-05-17] MEDS: ALBUTEROL SO4 HFA INHALER IH SCH ×3 (09:33→22:32)
[2022-05-17] MEDS: ERTAPENEM SODIUM 1 GM in SODIUM CHLORIDE 50 ML IVPB SCH (11:29)
[2022-05-17] MEDS: POLYETHYLENE GLYCOL (HEALTHYLAX) 3350 17 GM PACKET PO PRN (22:28)
[2022-05-17] MEDS: ATORVASTATIN CA 20 MG TABLET (FP) PO SCH (22:29)
[2022-05-17] MEDS: CARBIDOPA/LEVODOPA 25/100 TABLET (FP) PO SCH (22:29)
[2022-05-17] MEDS: MONTELUKAST NA 10 MG TABLET PO SCH (22:29)
[2022-05-18] MEDS: LEVOTHYROXINE NA 88 MCG TABLET (FP) PO SCH (06:38)
[2022-05-18] MEDS: MAGNESIUM OXIDE 400 MG TABLET (FP) PO SCH (10:05)
[2022-05-18] MEDS: HEPARIN NA (PORCINE) 5,000 UNITS/ML 1ML VIAL SQ SCH ×2 (10:05→21:04)
[2022-05-18] MEDS: PREGABALIN 100 MG CAPSULE PO SCH (10:05)
[2022-05-18] MEDS: FAMOTIDINE 20 MG TABLET PO SCH ×2 (10:05→21:04)
[2022-05-18] MEDS: CARBIDOPA/LEVODOPA 25/100 TABLET (FP) PO SCH ×2 (10:05→21:04)
[2022-05-18] MEDS: CALCIUM 500MG/VIT-D 200 UNITS COMBO TABLET (FP) PO SCH (10:05)
[2022-05-18] MEDS: ASPIRIN COATED 81 MG TABLET.EC PO SCH (10:05)
[2022-05-18] MEDS: POLYETHYLENE GLYCOL (HEALTHYLAX) 3350 17 GM PACKET PO PRN (10:05)
[2022-05-18] MEDS: MULTIVITAMINS (DAILY MVI) TABLET (FP) PO SCH (10:05)
[2022-05-18] MEDS: ALBUTEROL SO4 HFA INHALER IH SCH ×2 (10:07→21:05)
[2022-05-18] MEDS: ERTAPENEM SODIUM 1 GM in SODIUM CHLORIDE 50 ML IVPB SCH (10:15)
[2022-05-18] MEDS: ATORVASTATIN CA 20 MG TABLET (FP) PO SCH (21:04)
[2022-05-18] MEDS: MONTELUKAST NA 10 MG TABLET PO SCH (21:04)
[2022-05-18] MEDS: ACETAMINOPHEN 325 MG TABLET (FP) PO PRN (21:05)
[2022-05-19] MEDS: LEVOTHYROXINE NA 88 MCG TABLET (FP) PO SCH (06:20)
[2022-05-19] MEDS: CARBIDOPA/LEVODOPA 25/100 TABLET (FP) PO SCH ×2 (09:47→21:04)
[2022-05-19] MEDS: ALBUTEROL SO4 HFA INHALER IH SCH ×2 (09:47→21:04)
[2022-05-19] MEDS: PREGABALIN 100 MG CAPSULE PO SCH (09:47)
[2022-05-19] MEDS: HEPARIN NA (PORCINE) 5,000 UNITS/ML 1ML VIAL SQ SCH ×2 (09:47→21:04)
[2022-05-19] MEDS: CALCIUM 500MG/VIT-D 200 UNITS COMBO TABLET (FP) PO SCH (09:47)
[2022-05-19] MEDS: MAGNESIUM OXIDE 400 MG TABLET (FP) PO SCH (09:47)
[2022-05-19] MEDS: MULTIVITAMINS (DAILY MVI) TABLET (FP) PO SCH (09:47)
[2022-05-19] MEDS: FAMOTIDINE 20 MG TABLET PO SCH ×2 (09:47→21:04)
[2022-05-19] MEDS: POLYETHYLENE GLYCOL (HEALTHYLAX) 3350 17 GM PACKET PO PRN ×2 (09:47→21:00)
[2022-05-19] MEDS: ASPIRIN COATED 81 MG TABLET.EC PO SCH (09:48)
[2022-05-19] MEDS: ERTAPENEM SODIUM 1 GM in SODIUM CHLORIDE 50 ML IVPB SCH (09:48)
[2022-05-19] MEDS: MONTELUKAST NA 10 MG TABLET PO SCH (21:04)
[2022-05-19] MEDS: ATORVASTATIN CA 20 MG TABLET (FP) PO SCH (21:04)
[2022-05-20] MEDS: LEVOTHYROXINE NA 88 MCG TABLET (FP) PO SCH (06:16)
[2022-05-20 06:54] LABS: BASO % 0.9 % (0-2.0); EOS % 3.5 % (0-4.5); HEMATOCRIT 40.2 % (32.4-45.2); HEMOGLOBIN 13.2 GM/dL (10.7-15.3); LYMPH % 40.9 % (8-40); MCH 29.9 pg (25.7-33.7); MCHC 32.8 g/dl (32.0-36.0); MEAN CELL VOLUME 91.3 fl (80-96); MEAN PLT VOLUME 7.6 fl (7.5-11.1); MONO % 10.1 % (3.8-10.2); NEUT % 44.6 % (42.8-82.8); PLATELET COUNT 205 10^3/uL (134-434); RBC 4.41 M/mm3 (3.60-5.2); WHITE BLOOD COUNT 5.4 K/mm3 (4.0-10.0)
[2022-05-20 07:23] LABS: ALBUMIN 3.3 g/dl (3.4-5.0); BLOOD UREA NITROGEN 29.9 mg/dL (7-18)
[2022-05-20 07:24] LABS: CREATININE 0.7 mg/dL (0.55-1.3)
[2022-05-20 07:27] LABS: BILIRUBIN,TOTAL 0.4 mg/dL (0.2-1)
[2022-05-20] MEDS: CALCIUM 500MG/VIT-D 200 UNITS COMBO TABLET (FP) PO SCH (10:03)
[2022-05-20] MEDS: MAGNESIUM OXIDE 400 MG TABLET (FP) PO SCH (10:03)
[2022-05-20] MEDS: ASPIRIN COATED 81 MG TABLET.EC PO SCH (10:03)
[2022-05-20] MEDS: MULTIVITAMINS (DAILY MVI) TABLET (FP) PO SCH (10:04)
[2022-05-20] MEDS: CARBIDOPA/LEVODOPA 25/100 TABLET (FP) PO SCH ×2 (10:04→21:56)
[2022-05-20] MEDS: HEPARIN NA (PORCINE) 5,000 UNITS/ML 1ML VIAL SQ SCH (10:04)
[2022-05-20] MEDS: FAMOTIDINE 20 MG TABLET PO SCH ×2 (10:04→21:56)
[2022-05-20] MEDS: ERTAPENEM SODIUM 1 GM in SODIUM CHLORIDE 50 ML IVPB SCH (10:05)
[2022-05-20] MEDS: ALBUTEROL SO4 HFA INHALER IH SCH ×2 (10:06→23:00)
[2022-05-20] MEDS: ATORVASTATIN CA 20 MG TABLET (FP) PO SCH (21:56)
[2022-05-20] MEDS: MONTELUKAST NA 10 MG TABLET PO SCH (21:56)
[2022-05-21] MEDS: LEVOTHYROXINE NA 88 MCG TABLET (FP) PO SCH (06:16)
[2022-05-21] MEDS: ERTAPENEM SODIUM 1 GM in SODIUM CHLORIDE 50 ML IVPB SCH (09:33)
[2022-05-21] MEDS: ASPIRIN COATED 81 MG TABLET.EC PO SCH (09:33)
[2022-05-21] MEDS: MAGNESIUM OXIDE 400 MG TABLET (FP) PO SCH (09:33)
[2022-05-21] MEDS: CALCIUM 500MG/VIT-D 200 UNITS COMBO TABLET (FP) PO SCH (09:33)
[2022-05-21] MEDS: FAMOTIDINE 20 MG TABLET PO SCH ×2 (09:33→21:11)
[2022-05-21] MEDS: MULTIVITAMINS (DAILY MVI) TABLET (FP) PO SCH (09:33)
[2022-05-21] MEDS: CARBIDOPA/LEVODOPA 25/100 TABLET (FP) PO SCH ×2 (09:33→21:11)
[2022-05-21] MEDS: ALBUTEROL SO4 HFA INHALER IH SCH ×2 (09:33→21:12)
[2022-05-21] MEDS: ACETAMINOPHEN 325 MG TABLET (FP) PO PRN (20:40)
[2022-05-21] MEDS: ATORVASTATIN CA 20 MG TABLET (FP) PO SCH (21:11)
[2022-05-21] MEDS: MONTELUKAST NA 10 MG TABLET PO SCH (21:11)
[2022-05-22] MEDS: LEVOTHYROXINE NA 88 MCG TABLET (FP) PO SCH (06:16)
[2022-05-22 09:15] VITALS: RESP 18
[2022-05-22] MEDS: CARBIDOPA/LEVODOPA 25/100 TABLET (FP) PO SCH (09:25)
[2022-05-22] MEDS: MAGNESIUM OXIDE 400 MG TABLET (FP) PO SCH (09:25)
[2022-05-22] MEDS: ASPIRIN COATED 81 MG TABLET.EC PO SCH (09:25)
[2022-05-22] MEDS: MULTIVITAMINS (DAILY MVI) TABLET (FP) PO SCH (09:25)
[2022-05-22] MEDS: FAMOTIDINE 20 MG TABLET PO SCH (09:25)
[2022-05-22] MEDS: CALCIUM 500MG/VIT-D 200 UNITS COMBO TABLET (FP) PO SCH (09:26)
[2022-05-22] MEDS: ALBUTEROL SO4 HFA INHALER IH SCH (09:40)
[2022-05-22] MEDS: ERTAPENEM SODIUM 1 GM in SODIUM CHLORIDE 50 ML IVPB SCH (11:05)
[2022-05-22 13:59] VITALS: BP 92/57; PULSE 60; TEMP 98
== END 2022-05-22 18:45 | DRG 690 ==
LOC: JER 12:19 → JERBED 18:04 → J5S 21:44 → J4S 05-14 17:35
PROVIDERS: ADMIT Specialist; ATTEND Specialist
DX: N39.0 Urinary tract infection, site not specified (principal); B96.4 Proteus (mirabilis) (morganii) as the cause of diseases classified elsewhere; J45.909 Unspecified asthma, uncomplicated; E03.9 Hypothyroidism, unspecified; K21.9 Gastro-esophageal reflux disease without esophagitis; K57.90 Diverticulosis of intestine, part unspecified, without perforation or abscess without bleeding; I10 Essential (primary) hypertension; E78.5 Hyperlipidemia, unspecified; J44.9 Chronic obstructive pulmonary disease, unspecified; G20 Parkinson's disease; R32 Unspecified urinary incontinence; R26.2 Difficulty in walking, not elsewhere classified; M54.50 Low back pain, unspecified; M48.00 Spinal stenosis, site unspecified; R62.7 Adult failure to thrive; Z68.23 Body mass index [BMI] 23.0-23.9, adult; Z88.0 Allergy status to penicillin
CPT/HCPCS: 0241U-QW; 36415; 70450-TC; 71045-TC-FY; 74177-TC; 76700-TC; 76856-TC; 80053; 81003; 82607; 84443; 84484; 85025; 87086; 87186; 93005; 93010; 97116-GP; 97162-GP; 99285-25; C9803-CS; J1644; Q9967; U0003; U0005